=== PATIENT | female | born 1955 | race Caucasian/White ===

== ENCOUNTER 2016-11-26 10:37 | Emergency (ER) | payer MEDICAID, OTHER ==
[2016-11-26 10:42] VITALS: RESP 18; O2SAT 95
--- NOTE | 2016-11-26 11:10 | EDPHY ---
H & P Stated Complaint: Increased right hip pain for 2 weeks. Time Seen by Provider: 11/26/16 10:58 HPI/ROS: HPI: ROS: Source: Patient Exam Limitations: No limitations - Personal History Current Tetanus Diphtheria and Acellular Pertussis (TDAP): Yes - Medical/Surgical History Hx Asthma: No Hx Chronic Respiratory Disease: No Hx Diabetes: No Hx Cardiac Disease: No Hx Renal Disease: No Hx Cirrhosis: No Hx Alcoholism: No Hx HIV/AIDS: No Hx Splenectomy or Spleen Trauma: No Other PMH: back surg/knee surg/dupitrens /shoulder surgery/appy/vein stripping - Family History Significant Family History: No pertinent family hx - Social History Smoking Status: Never smoked Alcohol Use: Rarely Drug Use: None - Physical Exam Exam: 61-year-old female presents to emergency department with chief concern right hip /SI pain that onset 2 weeks ago. Onset the evening after she tripped while planting in the garden, falling on her right hip. Pain is 8/10 at its worst, 4/ 10 now, located in the right SI region with radiation of discomfort into the right posterior thigh to mid thigh. Worse with ambulation and weight-bearing. Has taken Advil with some improvement. Denies fever, chills, other injury at time of incident including head injury or neck injury, weakness, numbness, or tingling of the right leg. No incontinence of bowel or bladder. No saddle anesthesia. Primary care provider Dr. Jasso. Constitutional: Initial Vital Signs Temperature (C) 36.3 C 11/26/16 10:38 Heart Rate 79 11/26/16 10:38 Respiratory Rate 18 11/26/16 10:38 Blood Pressure 118/66 11/26/16 10:38 O2 Sat (%) 95 11/26/16 10:38 O2 Delivery Mode Room Air Allergies/Adverse Reactions: latex [Latex] Allergy (Verified 07/21/15 10:08) HIVES, EYES SWELL Home Medications: Medication Instructions Recorded Hydrocodone/APAP 5/325 [[place] 1 - 2 tab PO HS PRN #10 tab 11/26/16 5/325 (*)] Prozac 10 MG (*) 11/26/16 Valium 11/26/16 Medical Decision Making - Diagnostics Imaging: Right Hip, 2 portable views Technique: AP pelvis and frog-leg right hip. 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 Overall mineralization is normal. No fracture formerly. Thickness of the joint is normal, with no sclerosis and no significant osteophytes. No evidence of avascular necrosis. There is chronic degenerative change of the L3-L4 disk space where there is a levoscoliosis and right-sided disk space narrowing with vacuum phenomenon and marginal osteophyte formation. There are stable left inguinal surgical clips. The SI joints remain normal. There is no soft tissue calcification or ossification. Impression: 1. 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 If symptoms persist recommend 3T MRI for further evaluation. 2. Might the patient symptoms be referred from the lumbar spine? Dictated By: Memo Hoffman MD ED Course/Re-evaluation: 61-year-old female presents to emergency department with right hip pain over the past 2 weeks that onset 24 hours after a traumatic injury when she fell in the garden. No weakness, numbness, or tingling of extremities. No incontinence of bowel or bladder. She has a significant history that includes degenerative joint disease, back surgeries, knee surgeries, shoulder surgeries. Differential Diagnosis: Differential diagnosis includes but is not limited to sacroiliitis, musculoskeletal strain, fracture, dislocation, lumbar radiculopathy, infection Departure - Departure Disposition: Home, Routine, Self-Care Clinical Impression: Sacroiliitis Condition: Good Instructions: Sacroiliitis (ED), Lower Back Exercises (ED) Additional Instructions: Plan: Continue ibuprofen 400-600 mg every 6-8 hours as needed with food, stay well hydrated, may take for 1-2 weeks For severe pain that prevents her from sleeping, may use 1-2 [place] at bedtime-- Never drink or drive while taking this medication. This medication impairs decision making capacity so do not work or sign important documents while taking. This medication its constipating so drink plenty of fluids and consider an [id number] stool softener such as docusate sodium (Colace) while taking this medication. This medication has addictive properties. You should use the least amount for the shortest amount of time. [facility] do not refill narcotic pain medication prescriptions. This is a hospital policy. You will need to follow up as indicated for recheck for further narcotic refills. Follow up with your primary care provider Dr. Jasso for recheck next week-- When you call to schedule appointment, please let the office know you are an " ER follow up" appointment" For progressive weakness of the leg, incontinence of bowel or bladder, severe, unremitting pain that prevents her from walking or sleeping, or other concerning symptoms return promptly for recheck Referrals: Imer Jasso MD [Primary Care Provider] - As per Instructions Prescriptions: Hydrocodone/APAP 5/325 [[place] 5/325 (*)] 1 - 2 tab PO HS PRN #10 tab PRN Reason: Pain, Moderate
[2016-11-26] MEDS ORDERED: HYDROCODONE/APAP 5/325 TAB PO ONE (11:49)
[2016-11-26 11:53] VITALS: BP 122/64; PULSE 82; TEMP 98.6
== END 2016-11-26 11:58 | disposition home or self-care (01) ==
DX: M46.1 Sacroiliitis, not elsewhere classified (principal); Z91.040 Latex allergy status

== ENCOUNTER → 2016-12-16 | Outpatient (CLI) | payer MEDICAID ==
[~2016-12-16] MED LIST: GADOBUTROL 10 ML VIAL IVP ONE
== END ==
LOC: FIMAGING 07:54
PROVIDERS: ATTEND Nurse Practitioner Family
DX: M51.36 Other intervertebral disc degeneration, lumbar region (principal); M48.06 Spinal stenosis, lumbar region; M99.73 Connective tissue and disc stenosis of intervertebral foramina of lumbar region; M51.26 Other intervertebral disc displacement, lumbar region; M51.86 Other intervertebral disc disorders, lumbar region; R22.2 Localized swelling, mass and lump, trunk
CPT/HCPCS: A9585

== ENCOUNTER → 2017-01-13 | Outpatient (CLI) | payer MEDICAID | LOC: FIMAGING 13:40 | PROVIDERS: ATTEND Nurse Practitioner Family | DX: R22.2 Localized swelling, mass and lump, trunk (principal) ==

== ENCOUNTER 2017-01-24 18:40 | Emergency (ER) | payer MEDICAID ==
[2017-01-24 19:01] VITALS: O2SAT 94
[2017-01-24] MEDS ORDERED: HYDROmorphONE/DILAUDID 1 MG/ML SYR IVP ONE ×2 (20:31→22:20)
[2017-01-24] MEDS ORDERED: NS 1,000 ML IV ONE (20:31)
--- NOTE | 2017-01-24 20:34 | EDPHY ---
H & P Stated Complaint: Abdominal pain, Hx diverticulitis Time Seen by Provider: 01/24/17 20:21 HPI/ROS: CHIEF COMPLAINT: Abdominal pain HISTORY OF PRESENT ILLNESS: The patient is a 61-year-old female who comes to the emergency department complaining of left lower quadrant pain that is exactly reminiscent of diverticulitis she had in July of last year. Her symptoms improved on antibiotics. She did not require surgery. She has not had a fever. She has not had any vomiting . She has had mild diarrhea since July but nonbloody. She denies urinary symptoms. She has a history of appendectomy. No upper abdominal pain. No flank pain. REVIEW OF SYSTEMS: Constitutional: denies: chills, fever, recent illness, recent injury EENTM: denies: blurred vision, double vision, nose congestion Respiratory: denies: cough, shortness of breath Cardiac: denies: chest pain, irregular heart rate, lightheadedness, palpitations Gastrointestinal/Abdominal: See HPI Genitourinary: denies: dysuria, frequency, hematuria, pain Musculoskeletal: denies: joint pain, muscle pain Skin: denies: lesions, rash, jaundice, bruising Neurological: denies: headache, numbness, paresthesia, tingling, dizziness, weakness Hematologic/Lymphatic: denies: blood clots, easy bleeding, easy bruising Immunologic/allergic: denies: HIV/AIDS, transplant EXAM: GENERAL: Well-appearing, well-nourished and in no acute distress. HEAD: Atraumatic, normocephalic. EYES: Pupils equal round and reactive to light, extraocular movements intact, sclera anicteric, conjunctiva are normal. ENT: TMs normal, nares patent, oropharynx clear without exudates. Moist mucous membranes. NECK: Normal range of motion, supple without lymphadenopathy or JVD. LUNGS: Breath sounds clear to auscultation bilaterally and equal. No wheezes rales or rhonchi. HEART: Regular rate and rhythm without murmurs, rubs or gallops. ABDOMEN: Left lower quadrant tenderness BACK: No CVA tenderness, no spinal tenderness, step-offs or deformities EXTREMITIES: Normal range of motion, no pitting or edema. No clubbing or cyanosis. NEUROLOGICAL: Cranial nerves II through XII grossly intact. Normal speech, normal gait. 5/5 strength, normal movement in all extremities, normal sensation PSYCH: Normal mood, normal affect. SKIN: Warm, dry, normal turgor, no visible rashes or lesions. Source: Patient Exam Limitations: No limitations - Personal History Current Tetanus/Diphtheria Vaccine: Yes Current Tetanus Diphtheria and Acellular Pertussis (TDAP): Yes - Medical/Surgical History Hx Asthma: No Hx Chronic Respiratory Disease: No Hx Diabetes: No Hx Cardiac Disease: No Hx Renal Disease: No Hx Cirrhosis: No Hx Alcoholism: No Hx HIV/AIDS: No Hx Splenectomy or Spleen Trauma: No Other PMH: back surg/knee surg/dupitrens /shoulder surgery/appy/vein stripping - Family History Significant Family History: No pertinent family hx - Social History Smoking Status: Never smoked Alcohol Use: Sober Drug Use: None Constitutional: Initial Vital Signs Temperature (C) 36.7 C 01/24/17 18:59 Heart Rate 77 01/24/17 18:59 Respiratory Rate 16 01/24/17 18:59 Blood Pressure 143/93 H 01/24/17 18:59 O2 Sat (%) 94 01/24/17 18:59 O2 Delivery Mode Room Air Allergies/Adverse Reactions: latex [Latex] Allergy (Verified 07/21/15 10:08) HIVES, EYES SWELL Home Medications: Medication Instructions Recorded Hydrocodone/APAP 5/325 [[place] 1 - 2 tab PO HS PRN #10 tab 11/26/16 5/325 (*)] Prozac 10 MG (*) 11/26/16 Valium 11/26/16 Amoxicillin/Clavulanate Pot 875 mg PO BID #14 tab 01/24/17 [Augmentin 875Mg] Oxycodone HCl [Dazidox] 10 mg PO TID #14 tablet 01/24/17 Medical Decision Making - Diagnostics Imaging: Discussed imaging studies w/ scallop dredger Radiologist ED Course/Re-evaluation: We discussed the CT results including sacral fractures. I will start her on Augmentin. She states that this worked well for her last time. She is requesting more pain medication. She states that she took oxycodone 10 mg 3 times a day last time this worked well for her. It did not cause constipation. Differential Diagnosis: Partial list of the Differential diagnosis considered include but were not limited to; diverticulitis, back pain, kidney stone, urinary tract infection and although unlikely based on the history and physical exam, I also considered perforation, abscess, volvulus. I discussed these differential diagnoses and the plan with the patient as well as the usual and expected course. The patient understands that the diagnosis is provisional and that in medicine we are not always correct and that further workup is often warranted. Usual and customary warnings were given. All of the patient's questions were answered. The patient was instructed to return to the emergency department should the symptoms at all worsen or return, otherwise to followup with the physician as we discussed. - Data Points Laboratory Results: Laboratory Results 01/24/17 20:35 01/24/17 20:35 Medications Given: Discontinued Medications Amoxicillin/Clavulanate Potassium (Augmentin 875mg) 875 mg PO EDNOW ONE PRN Reason: Protocol Stop: 01/24/17 22:20 Last Admin: 01/24/17 22:50 Dose: 875 mg Hydromorphone HCl (Dilaudid) 1 mg IVP EDNOW ONE Stop: 01/24/17 20:32 Last Admin: 01/24/17 20:50 Dose: 1 mg Hydromorphone HCl (Dilaudid) 1 mg IVP EDNOW ONE Stop: 01/24/17 22:21 Last Admin: 01/24/17 22:35 Dose: 1 mg Sodium Chloride (Ns) 1,000 mls @ 0 mls/hr IV ONCE ONE PRN Reason: Wide Open Stop: 01/24/17 20:32 Last Admin: 01/24/17 20:50 Dose: 1,000 mls Ondansetron HCl (Zofran) 4 mg IVP EDNOW ONE Stop: 01/24/17 20:51 Last Admin: 01/24/17 20:50 Dose: 4 mg Ondansetron HCl (Zofran Odt 4 Mg Prepack#2) 1 btl TAKEHOME EDNOW ONE Stop: 01/24/17 23:29 Last Admin: 01/24/17 23:49 Dose: 1 btl Oxycodone/Acetaminophen (Percocet 5/325mg Prepack#4) 1 btl TAKEHOME EDNOW ONE Stop: 01/24/17 23:29 Last Admin: 01/24/17 23:45 Dose: 1 btl Departure - Departure Disposition: Home, Routine, Self-Care Clinical Impression: Diverticulitis Qualifiers: Diverticulitis site: large intestine Diverticulitis bleeding: without bleeding Diverticulitis complication: with perforation Qualified Code(s): K57.20 - Diverticulitis of large intestine with perforation and abscess without bleeding Condition: Good Instructions: Oxycodone/Acetaminophen (By mouth), Ondansetron (By mouth), Diverticulitis (ED) Referrals: Imer Jasso MD [Primary Care Provider] - As per Instructions Prescriptions: Amoxicillin/Clavulanate Pot [Augmentin 875Mg] 875 mg PO BID #14 tab Oxycodone HCl [Dazidox] 10 mg PO TID #14 tablet
[2017-01-24] MEDS ORDERED: ONDANSETRON 4 MG/2 ML VIAL ONE (20:39)
[2017-01-24 20:46] LABS: % IMMATURE GRANULYOCYTES 0.5 % (0.0-1.1); ABSOLUTE IMMATURE GRANULOCYTES 0.05 10^3/uL (0.00-0.10); ADD DIFF? NO; ADD MORPH? NO; ADD SCAN? NO; ATYPICAL LYMPHOCYTE FLAG 0 (0-99); FRAGMENT RBC FLAG 0 (0-99); HEMATOCRIT 42.7 % (38.0-47.0); HEMOGLOBIN 14.4 g/dL (12.6-16.3); LEFT SHIFT FLG 0 (0-99); LIPEMIA HEMOLYSIS FLAG 80 (0-99); MEAN CELL HEMOGLOBIN CONCENTR. 33.7 g/dL (32.4-36.7); MEAN CELL VOLUME 94.9 fL (81.5-99.8); MEAN PLATELET VOLUME 9.8 fL (8.7-11.7); PLATELET CLUMPS FLAG 0 (0-99); PLATELET COUNT 227 10^3/uL (150-400); RED CELL DISTRIBUTION WIDTH 13.2 % (11.5-15.2)
[2017-01-24] MEDS ORDERED: ONDANSETRON 4 MG/2 ML VIAL IVP ONE (20:50)
[2017-01-24 21:04] LABS: ALANINE AMINOTRANSFERASE 32 IU/L (9-52); ALBUMIN 4.2 g/dL (3.5-5.0); ALKALINE PHOSPHATASE 137 IU/L (38-126); ANION GAP 12 mEq/L (8-16); ASPARTATE AMINOTRANSFERASE 24 IU/L (14-46); BILIRUBIN,TOTAL 0.8 mg/dL (0.1-1.4); BILIRUBIN-CONJUGATED 0.4 mg/dL (0.0-0.5); BILIRUBIN-UNCONJUGATED 0.4 mg/dL (0.0-1.1); CALCIUM 9.7 mg/dL (8.5-10.4); CARBON DIOXIDE 23 mEq/l (22-31); CHLORIDE 105 mEq/L (97-110); CREATININE 0.9 mg/dL (0.6-1.0); GLOMERULAR FILTRATION RATE > 60; GLUCOSE 92 mg/dL (70-100); POTASSIUM 4.3 mEq/L (3.5-5.2); SODIUM 140 mEq/L (134-144)
[2017-01-24] MEDS ORDERED: IOPAMIDOL (ISOVUE-300) 100 ML BTL ONE (21:23)
[2017-01-24 21:36] LABS: COLOR YELLOW; LEUKOCYTE ESTERASE,URINE TRACE (NEGATIVE); NITRITE,URINE NEGATIVE (NEGATIVE)
[2017-01-24 21:39] LABS: BACTERIA TRACE /hpf (NONE SEEN)
[2017-01-24 21:41] LABS: RBC,URINE NONE SEEN /hpf (0-3)
[2017-01-24] MEDS ORDERED: AMOXICILLIN/CLAVULANATE POT 875/125 MG TAB PO ONE (22:19)
[2017-01-24] MEDS ORDERED: OXYCODONE/APAP 5/325MG PREPACK#4 BTL TAKEHOME ONE (23:28)
[2017-01-24] MEDS ORDERED: ONDANSETRON 4MG PREPACK#2 BTL TAKEHOME ONE (23:28)
[2017-01-24] MEDS ORDERED: ONDANSETRON DISINTEGRATING 4 MG TAB ONE (23:37)
[2017-01-24 23:52] VITALS: BP 134/86; PULSE 68; RESP 20; TEMP 97.9
== END 2017-01-24 23:50 | disposition home or self-care (01) ==
DX: K57.20 Diverticulitis of large intestine with perforation and abscess without bleeding (principal); Z91.040 Latex allergy status
CPT/HCPCS: 96374; J1170; J2405; Q9967

== ENCOUNTER → 2017-06-30 | Outpatient (CLI) | payer MEDICAID | LOC: FIMAGING 10:53 | PROVIDERS: ATTEND Family Medicine Sports Medicine | DX: Z13.820 Encounter for screening for osteoporosis (principal); Z78.0 Asymptomatic menopausal state; M85.80 Other specified disorders of bone density and structure, unspecified site ==

== ENCOUNTER → 2017-11-20 | Outpatient (CLI) | payer OTHER | LOC: FIMAGING 14:51 | PROVIDERS: ATTEND Family Medicine Sports Medicine | DX: Z12.31 Encounter for screening mammogram for malignant neoplasm of breast (principal) ==

== ENCOUNTER 2017-12-13 00:19 | Emergency (ER) | payer OTHER ==
[2017-12-13] MEDS ORDERED: NS 1,000 ML IV ONE (00:32)
[2017-12-13] MEDS ORDERED: ONDANSETRON 4 MG/2 ML VIAL IVP ONE (00:32)
[2017-12-13] MEDS ORDERED: HYDROmorphONE/DILAUDID 2 MG/ML INJ IVP ONE ×3 (00:32→02:54)
[2017-12-13 00:46] LABS: PLATELET COUNT 228 10^3/uL (150-400)
--- NOTE | 2017-12-13 01:11 | EDPHY ---
H & P Stated Complaint: abd pain Time Seen by Provider: 12/13/17 00:54 HPI/ROS: HPI The patient presents with abdominal pain which began tonight when she was going to bed. The pain is in her left lower quadrant and left upper quadrant, feels achy in nature, has been constant, and is moderate in severity. It does feel somewhat similar to her previous bouts of diverticulitis, which she experienced in July of 2016 and December of 2016. She has been able to take fluids by mouth, has not had any vomiting, diarrhea, bloody stools, fever. She was feeling well earlier in the day. She does admit to drinking a bottle of wine about 36 hr ago REVIEW OF SYSTEMS Constitutional: No fever, no chills. Eyes: No discharge. ENT: No sore throat. Cardiovascular: No chest pain, no palpitations. Respiratory: No cough, no shortness of breath. Gastrointestinal: Positive for abdominal pain Genitourinary: No hematuria. Musculoskeletal: No back pain. Skin: No rashes. Neurological: No headache. PMHx: History of diverticulitis Soc Hx: Lives at home with her , daughter is a trauma surgeon in [place] PHYSICAL General Appearance: Alert, no distress Eyes: Pupils equal and round no pallor or injection ENT, Mouth: Mucous membranes moist Respiratory: There are no retractions, lungs are clear to auscultation Cardiovascular: Regular rate and rhythm Gastrointestinal: Abdomen is soft with tenderness in the left upper quadrant greater than left lower quadrant without rebound or guarding. Neurological: A&O, moves all extremities Skin: Warm and dry, no rashes Musculoskeletal: Neck is supple non tender Extremities: symmetrical, full range of motion Psychiatric: Patient is oriented X 3, there is no agitation Source: Patient Exam Limitations: No limitations - Personal History Current Tetanus/Diphtheria Vaccine: Unsure Current Tetanus Diphtheria and Acellular Pertussis (TDAP): Unsure - Medical/Surgical History Hx Asthma: No Hx Chronic Respiratory Disease: No Hx Diabetes: No Hx Cardiac Disease: No Hx Renal Disease: No Hx Cirrhosis: No Hx Alcoholism: No Hx HIV/AIDS: No Hx Splenectomy or Spleen Trauma: No Other PMH: diverticulitis, back surg/knee surg/dupitrens /shoulder surgery/appy/ vein stripping - Social History Smoking Status: Never smoked Constitutional: Initial Vital Signs Temperature (C) 36.8 C 12/13/17 00:22 Heart Rate 77 12/13/17 00:22 Respiratory Rate 16 12/13/17 00:22 Blood Pressure 101/66 12/13/17 00:22 O2 Sat (%) 92 12/13/17 00:22 O2 Delivery Mode Room Air O2 (L/minute) 3 Allergies/Adverse Reactions: latex [Latex] Allergy (Verified 07/21/15 10:08) HIVES, EYES SWELL Home Medications: Medication Instructions Recorded Hydrocodone/APAP 5/325 [[place] 1 - 2 tab PO HS PRN #10 tab 11/26/16 5/325 (*)] Prozac 10 MG (*) 11/26/16 Valium 11/26/16 Amoxicillin/Clavulanate Pot 875 mg PO BID #14 tab 01/24/17 [Augmentin 875Mg] Oxycodone HCl [Dazidox] 10 mg PO TID #14 tablet 01/24/17 Medical Decision Making Differential Diagnosis: This is a 62-year-old female with history of diverticulitis who presents from home with several hours of left-sided abdominal pain mostly in her upper abdomen though some left lower quadrant tenderness as well. There is lack of any other symptoms. She says this is not feel like her prior bouts of diverticulitis. Differential diagnosis includes pancreatitis, diverticulitis, less likely splenic injury. In the emergency department, patient received IV fluids and pain medications with improvement in her symptoms. Labs were checked and did reveal very mild leukocytosis as well as elevated lipase. On further history, patient admits to drinking alcohol about 36 hr ago approximately 1 bottle of wine. This is concerning for acute alcoholic pancreatitis. I also considered gallstone pancreatitis and right upper quadrant ultrasound was performed showing no indication a biliary disease. I discussed her diagnosis with her. On reassessment she had continued pain, thus she received another dose of Dilaudid. She eventually felt well enough to go home. She was able to tolerate fluids without any difficulty. I have advised that she stop drinking alcohol and follow up with her primary care doctor. She is to maintain a low residue diet for the next several days. She is in agreement with this plan. - Data Points Laboratory Results: Laboratory Results 12/13/17 00:36 12/13/17 00:36 Medications Given: Discontinued Medications Hydromorphone HCl (Dilaudid) 1 mg IVP EDNOW ONE Stop: 12/13/17 00:33 Last Admin: 12/13/17 00:38 Dose: 1 mg Hydromorphone HCl (Dilaudid) 1 mg IVP EDNOW ONE Stop: 12/13/17 01:08 Last Admin: 12/13/17 01:24 Dose: 1 mg Hydromorphone HCl (Dilaudid) 1 mg IVP EDNOW ONE Stop: 12/13/17 02:55 Last Admin: 12/13/17 03:09 Dose: 1 mg Sodium Chloride (Ns) 1,000 mls @ 0 mls/hr IV ONCE ONE; Wide Open PRN Reason: Protocol Stop: 12/13/17 00:33 Last Admin: 12/13/17 00:38 Dose: 1,000 mls Ondansetron HCl (Zofran) 4 mg IVP EDNOW ONE Stop: 12/13/17 00:33 Last Admin: 12/13/17 00:38 Dose: 4 mg Departure - Departure Disposition: Home, Routine, Self-Care Clinical Impression: Pancreatitis, alcoholic, acute Qualifiers: Acute pancreatitis complication: unspecified Qualified Code(s): K85.20 - Alcohol induced acute pancreatitis without necrosis or infection Condition: Good Instructions: Pancreatitis (ED) Additional Instructions: I recommend you maintain a bland diet until your feeling better. Then you can advance her diet to regular foods. You need to stop drinking alcohol, as this is causing your symptoms. Return to the emergency room if your worse in any way. You should take oxycodone 1-2 tabs every 6 hr until your pain improves. Then you can take Tylenol 650 mg every 6 hr. Referrals: Imer Jasso MD [Primary Care Provider] - As per Instructions
[2017-12-13 04:56] VITALS: BP 132/74
== END 2017-12-13 04:56 | disposition home or self-care (01) ==
DX: K85.20 Alcohol induced acute pancreatitis without necrosis or infection (principal); E86.9 Volume depletion, unspecified; Z91.040 Latex allergy status
CPT/HCPCS: 96374; J1170; J2405

== ENCOUNTER 2017-12-14 16:09 | Inpatient (IN) | payer OTHER ==
--- NOTE | 2017-12-14 16:57 | EDPHY ---
H & P Time Seen by Provider: 12/14/17 16:48 HPI/ROS: Chief complaint. Abdominal pain HPI. 62-year-old female presents emergency department with 2 day history of left lower quadrant abdominal pain. She was seen in our emergency department on 12/13 for what sounds like left lower quadrant abdominal pain however she ended up with a diagnosis of pancreatitis. She has been using soft diet and continues to have left lower quadrant pain. She was seen in the office today and she had a low oxygen saturation. Patient has been taking oxycodone today. It sounds that the visit to the emergency department on 12/13 was complicated by low oxygen saturation after receiving IV Dilaudid. She continues to have left lower quadrant pain that is worse with movement. No nausea vomiting or diarrhea. Her pain reminds her of previous episodes of diverticulitis. She had fever yesterday. No urinary symptoms ROS Constitutional. Fever Eyes. no problems with vision ENT. no sore throat, no nasal drainage Cardiovascular. no chest pain Respiratory. no shortness of breath, no cough Abdominal. Left lower quadrant abdominal pain . no problems urinating MS. no calf pain/swelling, no neck/back pain, no joint pain Skin. no rash Lymph. no swollen glands Neuro. no headache, no dizziness, no difficulty walking or with speech Past Medical/Surgical History: Diverticulitis, orthopedic surgeries, appendectomy, pancreatitis Social History: , nonsmoker, no alcohol Smoking Status: Never smoked Physical Exam: General Appearance: Alert pleasant well-developed female moderate distress vital signs are stable Eyes: Pupils equal and round no pallor or injection. ENT, Mouth: Mucous membranes are moist. Respiratory: There are no retractions, lungs are clear to auscultation. Cardiovascular: Regular rate and rhythm. Gastrointestinal: Abdomen is soft with tender in the left lower quadrant and left mid quadrant. Normal bowel sounds. No masses. Neurological: Awake and alert, sensory and motor exams grossly normal. Skin: Warm and dry, no rashes. Musculoskeletal: Neck is supple nontender. Extremities symmetrical, full range of motion. Psychiatric: Patient is oriented X 3, there is no agitation. Constitutional: Initial Vital Signs Temperature (C) 36.8 C 12/14/17 16:18 Heart Rate 88 12/14/17 16:18 Respiratory Rate 16 12/14/17 16:18 Blood Pressure 123/73 H 04/17/18 16:18 O2 Sat (%) 95 12/14/17 16:18 O2 Delivery Mode Room Air Allergies/Adverse Reactions: latex [Latex] Allergy (Verified 07/21/15 10:08) HIVES, EYES SWELL Home Medications: Medication Instructions Recorded Prozac 10 MG (*) 11/26/16 Valium 11/26/16 Oxycodone HCl [Dazidox] 10 mg PO TID #14 tablet 01/24/17 Medical Decision Making - Diagnostics Imaging Results: Imaging Impressions Chest X-Ray 12/14/17 17:28 Impression: Subsegmental atelectasis versus mild infiltrate at the left lung base. Clinical correlation and follow-up to assure resolution are recommended. One-view chest x-ray shows likely subsegmental atelectasis but the possibility for mild infiltrate at the lung bases. Procedures: IV normal saline. Dilaudid for pain. Zofran for nausea IV Levaquin and Flagyl Another dose of Dilaudid is given for this patient ED Course/Re-evaluation: Patient is not want a CT scan as her daughter is a trauma surgeon in [place] and has cautioned her against CT because of radiation exposure At 7:00 p.m. Patient tells me that she agrees To this CT scan. It is ordered The patient, her , and I have discussed laboratory evaluation and recommendation for CT scan to further confirm diagnosis and look for perforation or abscess. They expressed understanding and agreement. We have discussed recommendation for admission. They expressed understanding and agreement I have consulted and discussed the case with , hospitalist, who agrees to the admission Differential Diagnosis: Clinically the patient has diverticulitis. I AA have considered abscess as well as perforation. I have also considered small-bowel obstruction. - Data Points Laboratory Results: Laboratory Results 12/14/17 16:43 12/14/17 16:43 12/14/17 12/14/17 12/14/17 19:00 17:55 16:43 WBC RBC Hgb Hct MCV MCH MCHC RDW Plt Count MPV Neut % (Auto) Lymph % (Auto) Miller % (Auto) Eos % (Auto) Baso % (Auto) Nucleat RBC Rel Count Absolute Neuts (auto) Absolute Lymphs (auto) Absolute Monos (auto) Absolute Eos (auto) Absolute Basos (auto) Absolute Nucleated RBC Immature Gran % Immature Gran # VBG Lactic Acid 0.7 mmol/L mmol/L (0.7-2.1) Sodium 133 mEq/L L mEq/L (135-145) Potassium 4.2 mEq/L mEq/L (3.5-5.2) Chloride 95 mEq/L L mEq/L (97-110) Carbon Dioxide 28 mEq/l mEq/l (22-31) Anion Gap 10 mEq/L mEq/L (8-16) BUN 7 mg/dL mg/dL (7-23) Creatinine 0.8 mg/dL mg/dL (0.6-1.0) Estimated GFR > 60 Glucose 95 mg/dL mg/dL (70-100) Calcium 9.2 mg/dL mg/dL (8.5-10.4) Lipase 127 IU/L IU/L (23-300) Urine Color YELLOW Urine Appearance CLEAR Urine pH 6.0 (5.0-7.5) Ur Specific [place] 1.005 (1.002-1.030) Urine Protein NEGATIVE (NEGATIVE) Urine Ketones 1+ H (NEGATIVE) Urine Blood 1+ H (NEGATIVE) Urine Nitrate NEGATIVE (NEGATIVE) Urine Bilirubin NEGATIVE (NEGATIVE) Urine Urobilinogen NEGATIVE EU EU (0.2-1.0) Ur Leukocyte Esterase 1+ H (NEGATIVE) Urine RBC 3-5 /hpf H /hpf (0-3) Urine WBC 10-15 /hpf H /hpf (0-3) Ur Epithelial Cells TRACE /lpf /lpf (NONE-1+) Urine Glucose NEGATIVE (NEGATIVE) 12/14/17 16:43 WBC 17.70 10^3/uL H D 10^3/uL (3.80-9.50) RBC 4.03 10^6/uL L 10^6/uL (4.18-5.33) Hgb 12.9 g/dL g/dL (12.6-16.3) Hct 38.9 % % (38.0-47.0) MCV 96.5 fL fL (81.5-99.8) MCH 32.0 pg pg (27.9-34.1) MCHC 33.2 g/dL g/dL (32.4-36.7) RDW 12.9 % % (11.5-15.2) Plt Count 212 10^3/uL 10^3/uL (150-400) MPV 10.7 fL fL (8.7-11.7) Neut % (Auto) 86.1 % H % (39.3-74.2) Lymph % (Auto) 5.0 % L % (15.0-45.0) Miller % (Auto) 7.6 % % (4.5-13.0) Eos % (Auto) 0.1 % L % (0.6-7.6) Baso % (Auto) 0.2 % L % (0.3-1.7) Nucleat RBC Rel Count 0.0 % % (0.0-0.2) Absolute Neuts (auto) 15.23 10^3/uL H 10^3/uL (1.70-6.50) Absolute Lymphs (auto) 0.89 10^3/uL L 10^3/uL (1.00-3.00) Absolute Monos (auto) 1.35 10^3/uL H 10^3/uL (0.30-0.80) Absolute Eos (auto) 0.02 10^3/uL L 10^3/uL (0.03-0.40) Absolute Basos (auto) 0.04 10^3/uL 10^3/uL (0.02-0.10) Absolute Nucleated RBC 0.00 10^3/uL 10^3/uL (0-0.01) Immature Gran % 1.0 % % (0.0-1.1) Immature Gran # 0.17 10^3/uL H 10^3/uL (0.00-0.10) VBG Lactic Acid Sodium Potassium Chloride Carbon Dioxide Anion Gap BUN Creatinine Estimated GFR Glucose Calcium Lipase Urine Color Urine Appearance Urine pH Ur Specific [place] Urine Protein Urine Ketones Urine Blood Urine Nitrate Urine Bilirubin Urine Urobilinogen Ur Leukocyte Esterase Urine RBC Urine WBC Ur Epithelial Cells Urine Glucose Medications Given: Discontinued Medications Hydromorphone HCl (Dilaudid) 0.5 mg IVP EDNOW ONE Stop: 12/14/17 17:28 Last Admin: 12/14/17 18:11 Dose: 0.5 mg Sodium Chloride (Ns) 1,000 mls @ 0 mls/hr IV EDNOW ONE; Wide Open PRN Reason: Protocol Stop: 12/14/17 17:28 Last Admin: 12/14/17 18:11 Dose: 1,000 mls Levofloxacin/Dextrose (Levaquin 750 Mg (Premix)) 150 mls @ 100 mls/hr IV EDNOW ONE PRN Reason: Protocol Stop: 12/14/17 19:10 Last Admin: 12/14/17 18:03 Dose: 150 mls Metronidazole/Sodium Chloride (Flagyl 500 Mg (Premix)) 100 mls @ 100 mls/hr IV EDNOW ONE PRN Reason: Protocol Stop: 12/14/17 18:40 Last Admin: 12/14/17 18:03 Dose: 100 mls Ondansetron HCl (Zofran) 4 mg IVP EDNOW ONE Stop: 12/14/17 17:28 Last Admin: 12/14/17 18:11 Dose: 4 mg Departure - Departure Disposition: [facility] Inpatient Acute Clinical Impression: Diverticulitis Abdominal pain Qualifiers: Abdominal location: left lower quadrant Qualified Code(s): R10.32 - Left lower quadrant pain Condition: Fair Referrals: Imer Jasso MD [Primary Care Provider] - As per Instructions
[2017-12-14] MEDS ORDERED: ONDANSETRON 4 MG/2 ML VIAL IVP ONE (17:27)
[2017-12-14] MEDS ORDERED: NS 1,000 ML IV ONE ×2 (17:27)
[2017-12-14] MEDS ORDERED: HYDROmorphONE/DILAUDID 2 MG/ML INJ IVP ONE ×2 (17:27→19:10)
[2017-12-14 17:36] LABS: PLATELET COUNT 212 10^3/uL (150-400)
[2017-12-14] MEDS ORDERED: IOPAMIDOL (ISOVUE-300) 100 ML BTL ONE (19:14)
[2017-12-14] MEDS ORDERED: HYDROmorphone HCL/NS 0.5 MG/ML SYR IVP ONE (21:15)
[2017-12-14] MEDS ORDERED: PROMETHAZINE HCL 25 MG/ML INJ IVP PRN (22:03)
--- NOTE | 2017-12-14 22:43 | GHP ---
[f rep st] HISTORY AND PHYSICAL DATE OF ADMISSION: 12/14/2017 CHIEF COMPLAINT: Left lower quadrant pain. HISTORY: The patient is a 62-year-old female who has had left lower quadrant pain for the last 2 day s. It came on very severely, radiating upward throughout her abdomen. She has a history of recurren t diverticulitis, 2 previous episodes in the past. The pain is always in the left lower quadrant. T he 2 previous time she has been treated with outpatient oral antibiotics only. Her last normal bowel movement was 2 days ago. Her last colonoscopy was normal in 2016 except for noted diverticulosis. She complains of fever to 99.9 and nausea. PAST MEDICAL HISTORY: 1. Recurrent diverticulitis x2. 2. Squamous cell of the hand, status post recent removal. MEDICATIONS: Please see computer record for full detailed list. ALLERGIES: Latex. SOCIAL HISTORY: No smoking, 2 glasses of wine per day. She lives with her . Her daughter is a trauma surgeon in [place], [place]. REVIEW OF SYSTEMS: Complete review of systems obtained. Review of systems negative on constitutiona l, HEENT, GI, pulmonary, cardiovascular, , hematologic, skin, musculoskeletal, endocrine, and psych iatric except for positives and negative as noted under HPI. FAMILY HISTORY: Reviewed, noncontributory to presenting complaint. PHYSICAL EXAMINATION: GENERAL: Well-developed, well-nourished female, in no acute distress. VITAL SIGNS: Temperature is 36.8, pulse 91, blood pressure 114/74, saturating 95% on room air. EYES: Nor mal conjunctivae. Pupils equal and react to light. ENT: Normal ears and nose. Hearing intact. No rmal teeth. Oropharynx moist. NECK: Trachea midline. No thyromegaly. CHEST: Normal respiratory effort. LUNGS: Clear to auscultation bilaterally. CARDIOVASCULAR: Regular rhythm. No murmur. No extremity edema. ABDOMEN: Soft. Positive left lower quadrant tenderness to palpation without rebo und or guarding. No hepatosplenomegaly. SKIN: Warm, dry, intact. No rash. MUSCULOSKELETAL: No c yanosis or clubbing. Strength 5/5 in upper and lower extremities. NEUROLOGIC: Cranial nerves intac t. Normal sensation to light touch. PSYCHIATRIC: Alert and oriented x3. Normal affect. Normal ju dgment. Normal insight. Normal memory. LABORATORY DATA: White count 17.7, hematocrit 38.9, platelets 212. Sodium 133, potassium 4.2, chlor nelsy 95, bicarb 28, BUN 9, creatinine 0.8, glucose 95. CT scan of the abdomen and pelvis shows a locu lated cystic lesion in the left pelvis, 4 cm, peridiverticular abscess versus tubo-ovarian abscess. This does have similar features back to December 2016. This case was discussed with Dr. Hendrix. CT scan was still pending when she left the emergency room. ASSESSMENT/PLAN: Diverticular abscess. I think this is less likely a tubo-ovarian abscess. Given t he concern, however, of the ovary involvement, I will check a pelvic ultrasound. I think she will li elias need some type of drainage, probably interventional radiology but possibly surgical. We will st art her on intravenous Levaquin and intravenous Flagyl. We will ask Infectious Disease to consult. Will determine the direction of intervention after pelvic ultrasound is obtained. CODE STATUS: Full. ADMISSION STATUS: Will admit to inpatient as she is medically complex. Anticipate greater than 2 mi dnights. DEEP VENOUS THROMBOSIS PROPHYLAXIS: Will hold for anticipated procedure. /[id number]/MODL
[2017-12-14] MEDS: HYDROmorphone HCL/NS 0.5 MG/ML SYR IVP PRN (23:24)
[2017-12-14] MEDS: NS 1,000 ML IV SCH (23:41)
[2017-12-14] MEDS: oxyCODONE IR 5 MG TAB PO PRN (23:42)
[2017-12-14] MEDS: ONDANSETRON 4 MG/2 ML VIAL IVP PRN (23:42)
[2017-12-15] MEDS: HYDROmorphone HCL/NS 0.5 MG/ML SYR IVP PRN ×3 (05:04→12:44)
[2017-12-15] MEDS: ONDANSETRON 4 MG/2 ML VIAL IVP PRN ×2 (05:04→10:30)
[2017-12-15 05:25] LABS: PLATELET COUNT 215 10^3/uL (150-400)
[2017-12-15] MEDS: FLUoxetine 10 MG CAP PO SCH (09:31)
--- NOTE | 2017-12-15 10:35 | PDMN ---
Medical Necessity Medical necessity: M150 diverticulitis, acute A-2: abd pain with CT showing loculated cystic lesion in L pelvis, peridiverticular abscess vs. tubo- ovarioan abscess. Poss I/D, needed. ID consult pend., pt is NPO- anticipate > 2 midnights ongoing med nec care, monitoring eval and tx needed
[2017-12-15] MEDS: cefTRIAXone 2 GM in STERILE WATER INJ 20 ML IV SCH (12:01)
[2017-12-15] MEDS: oxyCODONE IR 5 MG TAB PO PRN (12:08)
--- NOTE | 2017-12-15 12:30 | GCON ---
[f rep st] CONSULTATION INFECTIOUS DISEASES CONSULTATION DATE OF CONSULTATION: 12/15/2017 REQUESTING PHYSICIAN: Tabby Awad MD. REASON FOR CONSULTATION: Possible diverticular abscess. HISTORY OF PRESENT ILLNESS: Patient is a 62-year-old female with a past medical history of diverticu litis x2, both episodes managed as an outpatient with oral antibiotic therapy, who I am asked to see in consultation for a left lower quadrant abscess. The patient describes developing recurrent abdomi nal pain, primarily localized to the left lower quadrant, beginning over the preceding weekend. She was seen in the emergency department on 12/13/2017, at which point in time findings were felt to be m ost compatible with pancreatitis. Lipase was elevated to 411 at that point in time. Abdominal ultra sound was performed during her emergency department visit, which showed normal appearance of the gall bladder and pancreas. The patient had persistent abdominal pain, which was worsening, and was admitt ed based on these findings yesterday. Abdominal CT scan was performed, which shows a complex fluid c ollection in the left pelvis in a similar location to a peridiverticular abscess seen last year, whic h measures 3.9 x 3.9 x 4.5 cm. Tubo-ovarian abscess was also considered. This was followed up with a pelvic ultrasound with findings of a normal-appearing left ovary. Additional data showed a white c ount of 17,000. The patient describes having fever with shaking chills. She has had nausea but no v omiting or diarrhea. She does not have any painful urination, vaginal discharge, or passage of fecal material or air vaginally. The patient has been started empirically on levofloxacin and metronidazo le. Patient was treated 3 weeks ago with Augmentin due to some mild left lower quadrant pain, which resolved. Given the above findings, I am now asked to assist in her ongoing management. PAST MEDICAL HISTORY: Diverticulitis x2 episodes, both managed with oral antibiotics; CT scan of the abdomen and pelvis that was performed in December of 2016 showed sigmoid diverticulitis with micro perfor ation. Dysthymia, squamous cell carcinoma of the hand, status post surgical removal. DVT associated with . PAST SURGICAL HISTORY: Dupuytren contracture, multiple orthopedic surgeries. CURRENT MEDICATIONS: Levofloxacin 750 mg IV q.24 hours, metronidazole 500 mg IV q.8 hours, Dilaudid as needed for pain, Valium as needed for anxiety, Prozac 10 mg p.o. daily. ALLERGIES: No known drug allergies. SOCIAL HISTORY: Patient does not smoke. She describes social alcohol intake. No drug use history. 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 Pet dogs at home. No recent travel. FAMILY HISTORY: Noncontributory. REVIEW OF SYSTEMS: Outside that noted in the HPI, the remainder of 10 system review is unremarkable. PHYSICAL EXAMINATION: VITAL SIGNS: Temperature 37.3, heart rate 88, respiratory rate 14, blood pres sure 114/71, oxygen saturation 93% on room air. GENERAL: Patient is well nourished, well developed, in mild distress secondary to left lower quadrant pain. She appears nontoxic. HEENT: There is no scleral icterus, conjunctival injection, or conjunctival petechiae. Oropharynx shows slightly dry mu cous membranes. Dentition is in good repair. There is no nasal discharge. There is no tenderness o michael the frontal, maxillary or mastoid area. NECK: Supple without palpable lymphadenopathy or thyrom egaly. CHEST: Clear to auscultation bilaterally without adventitious sounds. Respiratory effort is normal. CARDIOVASCULAR: Regular rate and rhythm and rhythm without murmurs, gallops, or rubs. ABD OMEN: Soft, tender in the left mid and left lower quadrants. Bowel sounds are present. There is no palpable organomegaly. Voluntary guarding is present. MUSCULOSKELETAL: There is no cyanosis, club anyi, or edema. The right hand shows Steri-Strips present with no erythema adjacent to incision. SK IN: No rash is noted. No stigmata of endocarditis. The skin is warm and dry to touch. NEUROLOGIC: Patient is alert and interacts appropriately with the examiner. Cranial nerves 2-12 are grossly in tact. Muscle tone and bulk are normal. LABORATORY DATA: White blood cell count 17.3, hematocrit 36.0, platelets 215, neutrophils 87%. Seru m creatinine is 0.6, bicarbonate 25. Blood cultures x2 sets are pending. Imaging as outlined above, which was reviewed and interpreted by me with Radiology today. IMPRESSION: Probable peridiverticular abscess: Clinical findings most compatible with peridiverticu lar abscess given prior history of diverticulitis. No overt diverticulitis noted on CT scan, althoug h did receive Augmentin recently. Other considerations would be ovarian etiology, although ultrasoun d suggests ovary appearance is normal. Most likely, this will be associated with enteric nadege. Rev iew with Radiology regarding feasibility of percutaneous drainage, which is not felt to be possible b ased on appearance with concern for phlegmonous quality. We will obtain general surgery consultation for further input regarding open drainage versus continued observation with antibiotic therapy to de termine if collection matures allowing for percutaneous drainage versus resolves with medical managem ent. Ultimately, at some point, she will require sigmoid resection to prevent further recurrent epis odes when she is at a period of time where there is not active inflammation present. RECOMMENDATIONS: 1. Ceftriaxone 2 g IV daily (favor over levofloxacin based on higher susceptibility amongst E coli). 2. Continue metronidazole. 3. Discontinue levofloxacin. 4. General surgical consultation. 5. Follow up blood cultures and clinical course over time. 6. Thank you for this consultation. We will continue to follow the patient with you. /[id number]/MODL
--- NOTE | 2017-12-15 13:10 | HOSPPROG ---
Hospitalist Progress Note Assessment/Plan: Intra-abdominal abscess - Becky-diverticular vs TOA. U/S less suspicious for ovarian etiology, though gen surg concerned this may represent TOA. Discussed with ID and surg. WBC's remain elevated at 17K. BCx's pending. Poor pain control -surgery consulted for consideration of operative drainage vs atbx management and follow -POWER BUILDER DEVELOPER also consulted for their opinion, Dr. 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 No fevers. No N/V. Remains NPO. Objective: Vital Signs Temp Pulse Resp BP Pulse Ox 37.9 C 88 12 143/76 H 91 L 12/15/17 12:04 12/15/17 12:04 12/15/17 12:04 12/15/17 12:04 12/15/17 12:04 Laboratory Results 12/15/17 05:04 12/15/17 05:04 12/14/17 12/15/17 12/16/17 05:59 05:59 05:59 Intake Total 1200 Output Total 1000 Balance 200 - Physical Exam Constitutional: no apparent distress Eyes: PERRL Ears, Nose, Mouth, Throat: moist mucous membranes Cardiovascular: regular rate and rhythym Respiratory: no respiratory distress, clear to auscultation Gastrointestinal: normoactive bowel sounds, other (soft, +LLQ TTP, no r/r/g, +BS ) Skin: warm Musculoskeletal: full muscle strength Neurologic: AAOx3 Psychiatric: interacting appropriately ICD10 Worksheet Patient Problems: Problems Problem Status Onset Abdominal pain Acute Diverticulitis Acute Diverticulitis Acute
[2017-12-15] MEDS ORDERED: NALOXONE HCL 0.4 MG/ML INJ IVP PRN (13:25)
[2017-12-15] MEDS: HYDROmorphONE/DILAUDID 6 MG/30 ML PCA IV PRN (14:35)
--- NOTE | 2017-12-15 16:16 | ASMTCMCOM ---
CM Note CM Note Notes: Spoke w/RN, anticipate pt will dc home w/support of when medically stable. CM available for any changes. DC Plan: Independent Date Signed: 12/15/2017 04:15 PM Electronically Signed By:Sharon Mei RN
--- NOTE | 2017-12-15 16:47 | GCON ---
[f rep st] CONSULTATION HUMAN RESOURCES COMPENSATION ANALYST CONSULTATION DATE OF CONSULTATION: 12/15/2017 REFERRING PHYSICIAN: Mona Almazan MD REASON FOR CONSULTATION: Left lower quadrant abscess, possible tubo-ovarian abscess. HISTORY OF PRESENT ILLNESS: Patient is a 62-year-old 2, para 2, postmenopausal female, with a history of diverticulitis x2, who I am asked to see in consultation for left lower quadrant abscess, questionable tubo-ovarian abscess. The patient describes the pain primary localized to left lower quadrant. Pain is sharp and stabbing, with an onset about 3 days ago. The pain worsened and the patient presented to the Emergency Department 12/13/2017. The patient continued to have persistent left lower quadrant pain, associated with fevers, chills, and nausea. Denies any vomiting or diarrhea. She was then admitted 12/14/17 based on these findings. Patient denies any urinary complaints or bowel complaints. She denies any abnormal vaginal discharge, or any postmenopausal bleeding. Patient states she has not been sexually active for the last 10 years. Patient states she was treated 3 weeks ago with Augmentin and developed a yeast infection but has no symptoms at this time. PAST OB HISTORY: Remarkable for 2 uncomplicated vaginal deliveries; however, she did develop DVT with her second . GYNECOLOGIC HISTORY: Age of menarche 12. Cycles were regular. Patient has been menopausal since the age of 50. Denies any postmenopausal bleeding. Was on hormone replacement therapy for a short amount of time. Patient denies any history of abnormal Pap smears or any exposure to any sexually transmitted diseases. Pap smears and mammograms are normal and up to date. PAST MEDICAL HISTORY: Diverticulitis x 2, dysthymia, squamous cell carcinoma of the hand, DVT associated with . PAST SURGICAL HISTORY: Dupuytren contracture and multiple orthopedic surgeries. ALLERGIES: No known drug allergies. CURRENT MEDICATIONS: Include levofloxacin, metronidazole, Dilaudid as needed, Valium as needed, and Prozac. SOCIAL HISTORY: Patient is . She lives at home with her . She denies any tobacco or illicit drug use. She does admit to social alcohol intake. 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 FAMILY HISTORY: Noncontributory. REVIEW OF SYSTEMS: Ten-point review of systems is negative. Pertinent positives noted in HPI. PHYSICAL EXAMINATION: VITAL SIGNS: Stable. Patient is a afebrile. GENERAL: Well-nourished, well-developed female, no apparent distress. Alert and oriented x3. HEART: Regular rate and rhythm. LUNGS: Clear to auscultation bilaterally. ABDOMEN: Soft, nondistended. Mild tenderness in the left lower quadrant. No rebound or guarding noted. PELVIC EXAM: Deferred at this time. EXTREMITIES: Normal to inspection without calf tenderness or edema. LABORATORY DATA: White blood cell count 17.2, hematocrit 36, platelets 215. Blood cultures x2 are pending. IMAGING: Abdominal CT scan was performed, showing a complex fluid collection in left pelvis, similar location to a peridiverticular abscess seen last year, measuring 3 x 4 cm. Pelvic ultrasound was also done with findings of normal- appearing left ovary. IMPRESSION: A 62-year-old, G2, P2, postmenopausal female with left lower quadrant abscess and history of diverticulitis x 2 PLAN: 1. I reviewed the pelvic ultrasound, and it appears the left ovary is normal with the abscess just adjacent to it. 2. Patient is at low risk for pelvic inflammatory disease, tubo-ovarian abscess since she is not sexually active and has not been for the last 10 years and does not have any exposure to sexually transmitted diseases. 2. Doubt tubo-ovarian abscess at this time; most compatible with peridiverticular abscess, given prior history of diverticulitis. 3. If patient is requiring surgery and there is ovarian pathology seen, would be available for intraoperative consult. Thank you for this consultation. /[id number]/MODL MTDD
--- NOTE | 2017-12-15 19:23 | GCON ---
[f rep st] CONSULTATION CONSULTATION REQUESTED BY: Dr. Ion Hernandez and Dr. Tabby Awad. REASON FOR CONSULTATION: Intra-abdominal inflammatory process. HISTORY: Leah Montero is a 62-year-old white female who was doing well until Wednesday afternoon (today is Wednesday). She developed a "strong pain" that was sharp and constant, which was similar to her prior episodes of diverticulitis. The pain was located in the left lower quadrant. She came to the ER on Wednesday and the diagnosis of possible pancreatitis was made. She was sent home without antibiotics and did take oxycodone for pain. The pain became worse over the next 24 hours and at 3:00 p.m. yesterday she went to [facility] for further evaluation. She was sent to the ER and was admitted to the hospital. Yesterday, she had nausea but no vomiting. She has not moved her bowels, and she is not currently hungry. In June of 2016, she had a colonoscopy and was found to have diverticulosis. In July of 2016, she had her 1st episode of "diverticulitis." She was treated with Augmentin for 5 days and it resolved. She had eaten only broth at that timeframe. On in 2016, she had a recurrence. Again, she had a 5-day episode and was again treated with Augmentin. Note is made, she had an appendectomy in 1985 while she was . She recently had a CT scan which shows a left lower quadrant complex mass. There are diverticula, but no evidence of diverticulitis. The mass is anterior but adjacent to the left ovary. Ultrasound does show the mass adjacent to the left ovary and an endometrial fluid stripe. She has not had any vaginal discharge. She has had no pain with bowel movements. SOCIAL HISTORY: She is a nonsmoker. She drinks 2 glasses of wine 4-7 days a week. ALLERGIES: No known drug allergies. MEDICATIONS: She takes Prozac 10 mg and has done so for 20 years. She takes diazepam 5 mg for low back pain. PAST SURGICAL HISTORY: Included arthroscopy in both knees for meniscectomy. She has had a left shoulder labrum tear and biceps tendon tear, which have been repaired. She has had a left shoulder dislocation and left humeral fracture. This was treated non-operatively. She has had L5-S1 laminectomy. She has had Dupuytren contracture release bilaterally. She had her 1st episode of diverticulitis after the Dupuytren surgery, and she attributed it to constipation due to pain medications for her contractures. PAST MEDICAL HISTORY: There is no history of rheumatic fever, tuberculosis, hepatitis, or transfusions. REVIEW OF SYSTEMS: She wears lenses for visual correction. She has several dental caps and crowns. She has had a murmur since childhood. There are no limits on her activities. No history of steroid use. Note is made, she had a left lower leg DVT, which was not treated, in 1985. She has taken Lovenox with every surgery since that time. PHYSICAL EXAMINATION: GENERAL: She is awake, alert, and pleasant. She says her pain is much better now than it was earlier today. Note is made, she was on Levaquin and Flagyl since admission but was changed today to ceftriaxone. The Flagyl was continued. She does not appear toxic at this point. ABDOMEN: Tender with cough in the left lower quadrant. She has hypoactive but normal bowel sounds. To palpation, she is tender as follows: Right upper quadrant 1, right midabdomen 1, right lower quadrant 1, epigastrium 1, periumbilical area 1 , suprapubic area 2, left upper quadrant 1, left midabdomen 2, left lower quadrant 3-4. She does not have an acute abdomen at this time. LAB FINDINGS: Her white count was 17.7 on admission and 17.3 today, with 86% neutrophils identified in both cases. Hematocrit dropped from 38-36 with hydration. Her chest x-ray shows atelectasis versus an infiltrate in the left lower lobe. Note is made, her lactate is 0.7. IMPRESSION: Certainly, her history is very similar to her prior episodes of diverticulitis, yet on yesterday's CAT scan examination, although there were a few diverticula present, there certainly was not any signs of colonic inflammation. To my examination, this appears to be a complex mass in continuity with the left ovary, and I favor more a tubal-ovarian abscess/ ovarian process. Nonetheless, she does not appear toxic at this point. There is nothing to be percutaneously drained given the complex nature of the collection. PLAN: I suggest we continue antibiotic therapy. If she resolves without intervention, that would be fabulous. If she remains stable, hopefully we can decrease her infectious risk with several days of antibiotics before exploration. Certainly, if she is worse, then exploration would be indicated. I have spoken to the patient's daughter, who is a trauma surgeon in [place], [place], and she understands my thoughts, concerns, and plan. She agrees to proceed as we have outlined. /[id number]/MODL MTDD
[2017-12-15] MEDS: DOCUSATE SODIUM 100 MG CAP PO SCH (21:21)
[2017-12-16] MEDS: NS 1,000 ML IV SCH (02:15)
[2017-12-16 08:42] LABS: PLATELET COUNT 233 10^3/uL (150-400)
--- NOTE | 2017-12-16 09:43 | SOAPPROG ---
[facility] Progress Note Assessment/Plan: 12/16/17 09:39 Assessment: Improved since yesterday. temp down. pain slightly less. Although she has not passed flatus she is beginning to get hungry Plan: Continue IV antibiotic therapy. Consider a follow up CT in two days to see if the collection has become more amenable to percutaneous drainage. Do not anticipate urgent need for surgical intervention Subjective: " I'm going stir crazy!! I can't stay here 5 more days for IV antibiotics" Objective: Vital Signs Temp Pulse Resp BP Pulse Ox 37.0 C 77 16 120/58 L 87 L 12/16/17 07:34 12/16/17 07:34 12/16/17 07:34 12/16/17 07:34 12/16/17 07:34 Laboratory Results 12/16/17 08:32 12/15/17 05:04 12/15/17 12/16/17 12/17/17 05:59 05:59 05:59 Intake Total 1200 2400 2454 Output Total 1000 500 Balance 200 1900 2454 - Time Spent With Patient Time Spent With Patient: 25 - Pending Discharge Pending Discharge Within 24 Hours: No Pending Discharge Within 48 Hours: No Physical Exam - Physical Exam General Appearance: alert, mild distress Abdomen: guarding, other (Hypoactive bowel sounds. Sligghtly less tender than yesterday) ICD10 Worksheet Patient Problems: Problems Problem Status Onset Abdominal pain Acute Diverticulitis Acute Diverticulitis Acute
[2017-12-16] MEDS: FLUoxetine 10 MG CAP PO SCH (09:51)
[2017-12-16] MEDS: cefTRIAXone 2 GM in STERILE WATER INJ 20 ML IV SCH (09:51)
[2017-12-16] MEDS: DOCUSATE SODIUM 100 MG CAP PO SCH ×2 (09:51→21:37)
--- NOTE | 2017-12-16 12:32 | PCMIDPN ---
Assessment/Plan: Assessment: Pelvic inflammation status post diverticulitis. By latest imaging is not a drainable collection but instead a phlegmon. Currently covering with ceftriaxone and metronidazole. Patient is symptomatically improving in her white count is reducing. There continues to be some debate as to whether this is gastrointestinal in origin or ovarian. At this point this distinction is not crucial to therapeutic choices. Will continue the current regimen and follow clinically. Plan: 1. Continue IV ceftriaxone and metronidazole. 2. Continue to observe in p. O.. 3. Likely reimage in 2-3 days. 12/16/17 12:28 12/16/17 12:32 Subjective: Patient is resting in her hospital bed. She states she feels somewhat improved from admission. Fevers or chills. Continues to have a heavy feeling in her abdomen. Objective: Ceftriaxone # 3 Metronidazole # 2 Vital Signs Temp Pulse Resp BP Pulse Ox 37.2 C 80 16 118/60 87 L 12/16/17 11:44 12/16/17 11:44 12/16/17 11:44 12/16/17 11:44 12/16/17 11:44 Laboratory Results 12/16/17 08:32 12/15/17 05:04 12/15/17 12/16/17 12/17/17 05:59 05:59 05:59 Intake Total 1200 2400 2454 Output Total 1000 500 Balance 200 1900 2454 - Physical Exam General Appearance: WD/WN, alert, no apparent distress, non-toxic Respiratory: lungs clear, normal breath sounds, No respiratory distress Cardiac/Chest: regular rate, rhythm, No tachycardia Abdomen: soft, distended, No non-tender, No mass Skin: normal color, warm/dry, No rash Neuro/Psych: alert, normal mood/affect, oriented x 3 ICD10 Worksheet Patient Problems: Problems Problem Status Onset Abdominal pain Acute Diverticulitis Acute Diverticulitis Acute
[2017-12-16] MEDS: HYDROmorphONE/DILAUDID 6 MG/30 ML PCA IV PRN (13:10)
--- NOTE | 2017-12-16 14:59 | HOSPPROG ---
Hospitalist Progress Note Assessment/Plan: Intra-abdominal abscess - Becky-diverticular vs TOA. 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 Based on h/o diverticulitis, seems more likely to be diverticular in origin, though odd that there is not associated diverticulitis on CT. WBC's trending down. Clinically stable to a bit improved. BCx's NGTD. -discussed with Dr. Hernandez, recommends continued conservative management with IV atbx, to OR if clinically deteriorates -likely repeat CT in 1-2 days -cont ceftriaxone / flagyl, ID following -pain controlled on [employer] -cont trend wbc's -follow Cx data Full code DVT PPLX - Lovenox if not going to OR, o/w SCD's Dispo - cont inpt Subjective: Pt feels better. Pain better controlled, though she may be a bit confused from dilaudid. No fevers/chills. No N/V. Remains NPO. Objective: Vital Signs Temp Pulse Resp BP Pulse Ox 36.7 C 75 16 124/70 H 97 12/16/17 14:00 12/16/17 14:00 12/16/17 14:00 12/16/17 14:00 12/16/17 14:00 Laboratory Results 12/16/17 08:32 12/15/17 05:04 12/15/17 12/16/17 12/17/17 05:59 05:59 05:59 Intake Total 1200 2400 2454 Output Total 1000 500 Balance 200 1900 2454 - Physical Exam Constitutional: no apparent distress Eyes: PERRL Ears, Nose, Mouth, Throat: moist mucous membranes Cardiovascular: regular rate and rhythym Respiratory: no respiratory distress, clear to auscultation Gastrointestinal: normoactive bowel sounds, other (soft, nd, mild LLQ ttp, no r/ r/g) Skin: warm Musculoskeletal: full muscle strength Neurologic: AAOx3 Psychiatric: interacting appropriately ICD10 Worksheet Patient Problems: Problems Problem Status Onset Abdominal pain Acute Diverticulitis Acute Diverticulitis Acute
[2017-12-16] MEDS: ACETAMINOPHEN 325 MG TAB PO PRN (23:59)
[2017-12-17 05:05] LABS: PLATELET COUNT 297 10^3/uL (150-400)
[2017-12-17] MEDS: cefTRIAXone 2 GM in STERILE WATER INJ 20 ML IV SCH (09:53)
[2017-12-17] MEDS: DOCUSATE SODIUM 100 MG CAP PO SCH ×2 (09:53→21:41)
[2017-12-17] MEDS: FLUoxetine 10 MG CAP PO SCH (09:53)
--- NOTE | 2017-12-17 09:58 | PCMIDPN ---
Assessment/Plan: Assessment/Plan: * Pelvic phlegmon: Clinically improved with antibiotic therapy with decreasing white blood cell count and left lower quadrant pain. Continue ceftriaxone and metronidazole. Plan repeat CT scan likely on Wednesday to assess if phlegmon has become more mature where percutaneous drainage could be undertaken or if resolving with antibiotic therapy. Clinical findings and plan were discussed with patient, Dr. Almazan, and Dr. Hernandez. 12/17/17 09:56 Subjective: Patient feels improved with less abdominal pain although still on ECHOCARDIOLOGIST. Objective: Vital Signs Temp Pulse Resp BP Pulse Ox 36.8 C 73 16 135/70 H 88 L 12/17/17 07:21 12/17/17 09:44 12/17/17 09:44 12/17/17 09:44 12/17/17 09:44 Laboratory Results 12/17/17 04:40 12/17/17 04:40 12/16/17 12/17/17 12/18/17 05:59 05:59 05:59 Intake Total 2400 5098 Output Total 500 Balance 1900 5098 Ceftriaxone # 4 Metronidazole # 3 Blood cultures x2 no growth - Physical Exam General Appearance: alert, no apparent distress EENT: No scleral icterus, No thrush Respiratory: lungs clear, No respiratory distress Cardiac/Chest: regular rate, rhythm Abdomen: tender (Mild in left lower quadrant), No distended Skin: No rash ICD10 Worksheet Patient Problems: Problems Problem Status Onset Abdominal pain Acute Diverticulitis Acute Diverticulitis Acute
[2017-12-17] MEDS: ENOXAPARIN 40 MG/0.4 ML SYR SC SCH (11:41)
[2017-12-17] MEDS: D5W NS W/ 20 KCl/L 1,000 ML IV SCH (11:45)
--- NOTE | 2017-12-17 12:53 | HOSPPROG ---
Hospitalist Progress Note Assessment/Plan: Intra-abdominal abscess - Becky-diverticular vs TOA. 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 Based on h/o diverticulitis, seems more likely to be diverticular in origin, though odd that there is not associated diverticulitis on CT. WBC's trending down. Clinically improving. BCx's NGTD. -discussed with Dr. Kumar, recommends continued conservative management with IV atbx, to OR if clinically deteriorates -consider repeat CT in 1-2 days -cont ceftriaxone / flagyl, ID following -pain controlled on [employer], consider changing to orals when reliably tolerating po -trial clears today -cont to trend wbc's -follow Cx data Full code DVT PPLX - Lovenox Dispo - cont inpt Subjective: Pt doing better. Pain controlled. No N/V. Low grade temp overnight. Remains NPO. No CP or SOB. Objective: Vital Signs Temp Pulse Resp BP Pulse Ox 36.9 C 75 16 141/91 H 90 L 12/17/17 11:58 12/17/17 11:58 12/17/17 11:58 12/17/17 11:58 12/17/17 11:58 Laboratory Results 12/17/17 04:40 12/17/17 04:40 12/16/17 12/17/17 12/18/17 05:59 05:59 05:59 Intake Total 2400 5098 Output Total 500 Balance 1900 5098 - Physical Exam Constitutional: no apparent distress Eyes: PERRL Ears, Nose, Mouth, Throat: moist mucous membranes Cardiovascular: regular rate and rhythym, no murmur, rub, or gallop Respiratory: no respiratory distress, clear to auscultation Gastrointestinal: normoactive bowel sounds, soft, non-tender abdomen Skin: warm Musculoskeletal: full muscle strength Neurologic: AAOx3 Psychiatric: interacting appropriately ICD10 Worksheet Patient Problems: Problems Problem Status Onset Abdominal pain Acute Diverticulitis Acute Diverticulitis Acute
[2017-12-17] MEDS: HYDROmorphONE/DILAUDID 6 MG/30 ML PCA IV PRN (14:10)
--- NOTE | 2017-12-17 14:15 | SOAPPROG ---
SOAP Progress Note Assessment/Plan: Assessment: felicia-colonic abscess, likely due to diverticulitis I reviewed her CT images and clinical course and agree with management thus far. Consider repeat imaging prior to discontinuing antibiotics or sooner if respikes fever or has rising leukocytosis The abscess, though not mature on the initial CT, should be easily accessible by percutaneous anterior approach Plan: Continue Abx/clear liquid diet continue observation 12/17/17 14:26 12/17/17 14:28 Subjective: feeling a little better than yesterday passing some flatus/no BM Objective: Vital Signs Temp Pulse Resp BP Pulse Ox 36.9 C 75 16 148/77 H 94 12/17/17 13:51 12/17/17 13:51 12/17/17 13:51 12/17/17 13:51 12/17/17 13:51 Laboratory Results 12/17/17 04:40 12/17/17 04:40 12/16/17 12/17/17 12/18/17 05:59 05:59 05:59 Intake Total 2400 5098 Output Total 500 Balance 1900 5098 - Pending Discharge Pending Discharge Within 24 Hours: No Physical Exam - Physical Exam General Appearance: mild distress Cardiac/Chest: regular rate, rhythm Abdomen: normal bowel sounds, soft, distended, other (tender LLQ with mild guarding/no mass) Pelvic Exam: deferred Rectal: deferred Skin: normal color, warm/dry Neuro/Psych: normal mood/affect, oriented x 3 ICD10 Worksheet Patient Problems: Problems Problem Status Onset Abdominal pain Acute Diverticulitis Acute Pericolonic abscess Acute Diverticulitis Acute - ICD10 Problem Qualifiers (1) Pericolonic abscess
--- NOTE | 2017-12-17 14:34 | ASMTCMCOM ---
CM Note CM Note Notes: Spoke w/RN, plan remains the same, anticipate pt will dc home w/support of family when medically stable. CM available for any changes. DC Plan: Independent Date Signed: 12/17/2017 02:33 PM Electronically Signed By:Sharon Mei RN
[2017-12-18 05:24] LABS: PLATELET COUNT 273 10^3/uL (150-400)
[2017-12-18] MEDS: D5W NS W/ 20 KCl/L 1,000 ML IV SCH (05:52)
--- NOTE | 2017-12-18 08:33 | SOAPPROG ---
SOAP Progress Note Assessment/Plan: 12/16/17 09:39 Assessment: Improved since yesterday. temp down. pain slightly less. Although she has not passed flatus she is beginning to get hungry Plan: Continue IV antibiotic therapy. Consider a follow up CT in two days to see if the collection has become more amenable to percutaneous drainage. Do not anticipate urgent need for surgical intervention 12/18/17 08:30 Assessment: Improved! WBC decreased to 10K, afebrile, pain remarkably less - responding to antibiotics Plan: F/u CT of abdomen and pelvis tomorrow to aid in diagnosis and planning Subjective: "I'm better" Objective: Vital Signs Temp Pulse Resp BP Pulse Ox 36.5 C 69 18 145/93 H 95 12/18/17 07:49 12/18/17 07:49 12/18/17 07:49 12/18/17 07:49 12/18/17 07:49 Laboratory Results 12/18/17 05:10 12/17/17 04:40 12/17/17 12/18/17 12/19/17 05:59 05:59 05:59 Intake Total 5098 Balance 5098 - Time Spent With Patient Time Spent With Patient: 15 - Pending Discharge Pending Discharge Within 24 Hours: No Pending Discharge Within 48 Hours: No Physical Exam - Physical Exam General Appearance: WD/WN, alert, mild distress Abdomen: normal bowel sounds, soft, other (left lower quardrant much less tender ) ICD10 Worksheet Patient Problems: Problems Problem Status Onset Abdominal pain Acute Diverticulitis Acute Pericolonic abscess Acute Diverticulitis Acute
[2017-12-18] MEDS: FLUoxetine 10 MG CAP PO SCH (09:05)
[2017-12-18] MEDS: DOCUSATE SODIUM 100 MG CAP PO SCH ×2 (09:05→19:31)
[2017-12-18] MEDS: ENOXAPARIN 40 MG/0.4 ML SYR SC SCH (09:05)
[2017-12-18] MEDS: cefTRIAXone 2 GM in STERILE WATER INJ 20 ML IV SCH (09:05)
[2017-12-18] MEDS: oxyCODONE IR 5 MG TAB PO PRN ×6 (09:05→23:10)
--- NOTE | 2017-12-18 11:14 | PCMIDPN ---
Assessment/Plan: Assessment/Plan: * Pelvic phlegmon: Continued clinical improvement with decreasing abdominal pain and leukocytosis. Continue ceftriaxone and metronidazole. Plan repeat CT scan of abdomen and pelvis tomorrow to reassess pelvic collection to determine if has become more organized where would be amenable to percutaneous drainage. Clinical findings and plan discussed with patient, and Dr. Hernandez. Time spent, 25 min, of which greater than half was spent in education/counseling /coordination of care related to pelvic phlegmon. 12/18/17 11:12 Subjective: Patient notes decreasing abdominal pain. Continuing to require narcotics for pain control. Tolerating clear liquids. Objective: Vital Signs Temp Pulse Resp BP Pulse Ox 36.9 C 76 18 131/97 H 91 L 12/18/17 10:00 12/18/17 10:00 12/18/17 10:00 12/18/17 10:00 12/18/17 10:00 Laboratory Results 12/18/17 05:10 12/17/17 04:40 12/17/17 12/18/17 12/19/17 05:59 05:59 05:59 Intake Total 5098 Balance 5098 Ceftriaxone # 5 Metronidazole # 4 Blood cultures x2 no growth - Physical Exam General Appearance: alert, no apparent distress EENT: No scleral icterus, No thrush Respiratory: lungs clear, No respiratory distress Cardiac/Chest: regular rate, rhythm Abdomen: tender (Left lower quadrant), No distended ICD10 Worksheet Patient Problems: Problems Problem Status Onset Abdominal pain Acute Diverticulitis Acute Pericolonic abscess Acute Diverticulitis Acute
[2017-12-18] MEDS ORDERED: BISACODYL 10 MG SUPP PR PRN (14:05)
[2017-12-18] MEDS ORDERED: SENNOSIDES 1 TAB PO PRN ×2 (14:06→14:30)
--- NOTE | 2017-12-18 16:19 | HOSPPROG ---
Hospitalist Progress Note Assessment/Plan: Subjective Follow-up on intra-abdominal abscess Patient states she is feeling much better than the days prior. Her diet has been advanced to clears. She did state that it has been about 7 days and her last bowel movement. She has had issues with constipation in the past and states that the Dulcolax per rectum has been helpful. Otherwise we discussed at our tentative plan is for reassessment with a CT scan in the morning. Objective Vital signs as detailed below Physical exam General-patient appears comfortable she is awake alert conversant no acute distress Cardiac-regular rate and rhythm no murmurs Lungs-Clear to auscultation with normal respiratory effort Abdomen-nondistended nontender in the right abdomen no significant tenderness with mild palpation on the left. Bowel sounds normal -no Hanna catheter in place Extremities-no significant pitting edema Labs as detailed below Assessment plan 1. Intra-abdominal abscess-appreciate surgery and Infectious disease's assistance on the case. Continue and and antibiotics per ID's recommendations. Pending repeat CT scan in the morning for reassessment. 2. Leukocytosis-trending down with antibiotic therapy 3. Anemia-mild. Possibly inflammatory in etiology. Continue to trend 4. Constipation-Dulcolax p.r. Added. 5. Depression-continue with SSRI therapy 6. DVT prophylaxis- Lovenox 7. Disposition-continue work with PT and OT I would anticipate she would be able to return home once medically ready. Objective: Vital Signs Temp Pulse Resp BP Pulse Ox 36.8 C 66 16 156/81 H 95 12/18/17 15:05 12/18/17 15:05 12/18/17 15:05 12/18/17 15:05 12/18/17 15:05 Laboratory Results 12/18/17 05:10 12/17/17 04:40 12/17/17 12/18/17 12/19/17 05:59 05:59 05:59 Intake Total 5098 1000 Balance 5098 1000 ICD10 Worksheet Patient Problems: Problems Problem Status Onset Abdominal pain Acute Diverticulitis Acute Pericolonic abscess Acute Diverticulitis Acute
[2017-12-18] MEDS ORDERED: diphenhydrAMINE 25 MG CAP PO PRN (20:25)
[2017-12-18] MEDS ORDERED: DIPHENHYDRAMINE CREAM TP PRN (20:25)
[2017-12-18] MEDS: HYDROCORTISONE 1% CREAM TP SCH (20:35)
[2017-12-19] MEDS: ACETAMINOPHEN 325 MG TAB PO PRN (00:36)
[2017-12-19 04:59] LABS: PLATELET COUNT 311 10^3/uL (150-400)
[2017-12-19] MEDS: oxyCODONE IR 5 MG TAB PO PRN ×5 (06:08→20:08)
[2017-12-19] MEDS: cefTRIAXone 2 GM in STERILE WATER INJ 20 ML IV SCH (08:11)
[2017-12-19] MEDS: ENOXAPARIN 40 MG/0.4 ML SYR SC SCH ×2 (08:11→12:30)
[2017-12-19] MEDS: DOCUSATE SODIUM 100 MG CAP PO SCH ×2 (08:11→20:09)
[2017-12-19] MEDS: FLUoxetine 10 MG CAP PO SCH (08:11)
[2017-12-19] MEDS: HYDROCORTISONE 1% CREAM TP SCH ×2 (08:13→20:09)
[2017-12-19] MEDS ORDERED: IOPAMIDOL (ISOVUE-300) 100 ML BTL ONE (09:59)
[2017-12-19] MEDS: POLYETHYLENE GLYCOL 3350 17 GM PKT PO SCH (10:32)
--- NOTE | 2017-12-19 11:27 | SOAPPROG ---
SOAP Progress Note Assessment/Plan: 12/16/17 09:39 Assessment: Improved since yesterday. temp down. pain slightly less. Although she has not passed flatus she is beginning to get hungry Plan: Continue IV antibiotic therapy. Consider a follow up CT in two days to see if the collection has become more amenable to percutaneous drainage. Do not anticipate urgent need for surgical intervention 12/18/17 08:30 Assessment: Improved! WBC decreased to 10K, afebrile, pain remarkably less - responding to antibiotics Plan: F/u CT of abdomen and pelvis tomorrow to aid in diagnosis and planning 12/19/17 11:22 Assessment: Stable/improving - Afebrile, WBC down to 8.5K with a drop in neutrophils to 72% . Slightly more tender in LLQ after diarrhea due to oral contrast this AM. CT shows mass/phlegmon to not have matured further. Plan: Dr. Hernandez will speak to IR about percutaneous drainage. If unable to drain, may consider outpatient antibiotic therapy Subjective: I'm more tender after the diarrhea that came in response to that oral liquid I took before the CT scan Objective: Vital Signs Temp Pulse Resp BP Pulse Ox 36.5 C 69 20 150/97 H 95 12/19/17 11:06 12/19/17 11:06 12/19/17 11:06 12/19/17 11:06 12/19/17 11:06 Laboratory Results 12/19/17 04:45 12/17/17 04:40 12/18/17 12/19/17 12/20/17 05:59 05:59 05:59 Intake Total 1650 Balance 1650 - Pending Discharge Pending Discharge Within 24 Hours: No Physical Exam - Physical Exam General Appearance: WD/WN, alert, mild distress Abdomen: normal bowel sounds, soft, other (slightly more tender in LLQ than yesterday on palpation) ICD10 Worksheet Patient Problems: Problems Problem Status Onset Abdominal pain Acute Diverticulitis Acute Pericolonic abscess Acute Diverticulitis Acute
[2017-12-19] MEDS ORDERED: ALTEPLASE 2 MG VIAL IVP PRN (15:05)
--- NOTE | 2017-12-19 15:32 | HOSPPROG ---
Hospitalist Progress Note Assessment/Plan: Subjective Follow-up on intra-abdominal abscess I have reviewed and case with Dr. Hernandez and Dr. Hernandez today. Patient states this morning she is feeling much better. After her oral contrast however she is having slightly worse abdominal symptoms. No emesis or subjective fevers. After discussion with Dr. Hernandez and Dr. Hernandez the tentative plan is to have interventional Radiology given opinion on drainage of the abscess seen on CT imaging. If no drain felt to be indicated then we would continue with antibiotic therapy. Objective Vital signs as detailed below Physical exam General-patient appears comfortable she is awake alert conversant no acute distress. Cardiac-regular rate and rhythm no murmurs appreciated. Lungs-Clear to auscultation with normal respiratory effort. Abdomen-nondistended nontender in the right abdomen. No major tenderness with mild palpation on the left. No rebound tenderness noted. Bowel sounds are normal. -no Hanna catheter in place Extremities-no significant pitting edema. Labs as detailed below Assessment and plan 1. Intra-abdominal abscess-in discussing her case with Dr. Hernandez today it is felt that the source is likely secondary to diverticular disease. On CT imaging the size is stable. Our next step is discussed the case with interventional Radiology to get an opinion on drain placement. Otherwise will plan on continuing with IV antibiotics per Dr. Hernandez recommendations. 2. Abdominal pain-continue with oral oxycodone and IV Dilaudid. 3. Constipation-improved patient did have a bowel movement last evening as well as this morning. We will continue with Dulcolax as needed per rectum. 4. Depression-continue Prozac at 10 mg daily 5. DVT prophylaxis-Lovenox. I will place this on hold in case of any drain placement tomorrow. 6. Disposition-continue work with PT and OT. I would anticipate she would be able to return home once medically ready. Will work with Case Management and Infectious Disease regarding antibiotic therapy. Objective: Vital Signs Temp Pulse Resp BP Pulse Ox 36.5 C 69 20 150/97 H 96 12/19/17 11:06 12/19/17 11:06 12/19/17 11:06 12/19/17 11:06 12/19/17 12:32 Laboratory Results 12/19/17 04:45 12/17/17 04:40 12/18/17 12/19/17 12/20/17 05:59 05:59 05:59 Intake Total 1650 Balance 1650 ICD10 Worksheet Patient Problems: Problems Problem Status Onset Abdominal pain Acute Diverticulitis Acute Pericolonic abscess Acute Diverticulitis Acute
--- NOTE | 2017-12-19 15:51 | PCMIDPN ---
Assessment/Plan: Assessment/Plan: * Pelvic phlegmon: CT shows similar findings to initial CT scan. Will revisit with interventional Radiology regarding feasibility of drainage as does appear to have some fluid component. Continue ceftriaxone and metronidazole. Will place PICC line in a.m. as favor continued IV therapy rather than fluoroquinolone given potential for QT prolongation with concomitant Prozac and higher likelihood of resistance in E coli to fluoroquinolones. May transition ceftriaxone and metronidazole to ertapenem if has persistent decreased appetite in event metronidazole contributing. Risks and benefits of PICC line including potential for PICC associated infection or DVT discussed. Time spent, 25 min, of which greater than half was spent in education/counseling /coordination of care related to pelvic phlegmon. 12/19/17 15:48 Subjective: Patient felt better this a.m. but now with increased lower abdominal pain. Remains with decreased appetite. Objective: Vital Signs Temp Pulse Resp BP Pulse Ox 36.5 C 69 20 150/97 H 96 12/19/17 11:06 12/19/17 11:06 12/19/17 11:06 12/19/17 11:06 12/19/17 12:32 Laboratory Results 12/19/17 04:45 12/17/17 04:40 12/18/17 12/19/17 12/20/17 05:59 05:59 05:59 Intake Total 1650 Balance 1650 Ceftriaxone # 6 Metronidazole # 5 Blood cultures x2 no growth CT abdomen pelvis reviewed with similar findings to initial CT scan although now more suggestive of diverticular etiology - Physical Exam General Appearance: alert, no apparent distress EENT: No scleral icterus, No thrush Abdomen: tender (Left lower quadrant with voluntary guarding), No distended Skin: No rash ICD10 Worksheet Patient Problems: Problems Problem Status Onset Abdominal pain Acute Diverticulitis Acute Pericolonic abscess Acute Diverticulitis Acute
--- NOTE | 2017-12-19 16:17 | ASMTCMCOM ---
CM Note CM Note Notes: Spoke with RN, plan to see if the abscess can be drained tomorrow and will have PICC line placed. Therapies not ordered at this time, discharge plan remains the same, likely to discharge home independently with family. CM available to support with any CM needs. Current D/C Plan: Discharge likely home independent with family. Date TBD, possibly 12/20/17. Date Signed: 12/19/2017 04:16 PM Electronically Signed By:Tricia Garza
[2017-12-19] MEDS: DIAZEPAM 5 MG TAB PO PRN (18:04)
[2017-12-19] MEDS ORDERED: HYDROmorphone HCL/NS 0.5 MG/ML SYR IVP PRN (18:52)
[2017-12-20] MEDS: FLUoxetine 10 MG CAP PO SCH (08:56)
[2017-12-20] MEDS: cefTRIAXone 2 GM in STERILE WATER INJ 20 ML IV SCH (08:56)
[2017-12-20] MEDS: oxyCODONE IR 5 MG TAB PO PRN ×4 (08:57→22:38)
[2017-12-20] MEDS: POLYETHYLENE GLYCOL 3350 17 GM PKT PO SCH (09:05)
[2017-12-20] MEDS: DOCUSATE SODIUM 100 MG CAP PO SCH ×2 (09:05→20:10)
[2017-12-20] MEDS: HYDROCORTISONE 1% CREAM TP SCH ×2 (09:06→20:10)
--- NOTE | 2017-12-20 10:54 | SOAPPROG ---
SOAP Progress Note Assessment/Plan: 12/16/17 09:39 Assessment: Improved since yesterday. temp down. pain slightly less. Although she has not passed flatus she is beginning to get hungry Plan: Continue IV antibiotic therapy. Consider a follow up CT in two days to see if the collection has become more amenable to percutaneous drainage. Do not anticipate urgent need for surgical intervention 12/18/17 08:30 Assessment: Improved! WBC decreased to 10K, afebrile, pain remarkably less - responding to antibiotics Plan: F/u CT of abdomen and pelvis tomorrow to aid in diagnosis and planning 12/19/17 11:22 Assessment: Stable/improving - Afebrile, WBC down to 8.5K with a drop in neutrophils to 72% . Slightly more tender in LLQ after diarrhea due to oral contrast this AM. CT shows mass/phlegmon to not have matured further. Plan: Dr. Hernandez will speak to IR about percutaneous drainage. If unable to drain, may consider outpatient antibiotic therapy 12/20/17 10:49 Assessment: Continues to improve. Less abdominal pain. Input from IR still pending. PICC to be placed for chronic antibiotic administration Note: Daughter to arrive tonight Plan: Continue non-operative treatment Nothing to add at this point from surgery although surgery may be indicated in the future. Surgery will sign off at this time. Please re-contact as needed. Subjective: I'm feeling better! pain is more localized and less intense. Objective: Vital Signs Temp Pulse Resp BP Pulse Ox 36.8 C 84 18 124/72 H 93 12/20/17 07:43 12/20/17 07:43 12/20/17 07:43 12/20/17 07:43 12/20/17 07:43 Laboratory Results 12/19/17 04:45 12/17/17 04:40 12/19/17 12/20/17 12/21/17 05:59 05:59 05:59 Intake Total 1650 250 Balance 1650 250 - Time Spent With Patient Time Spent With Patient: 15 Physical Exam - Physical Exam General Appearance: WD/WN, alert, mild distress Abdomen: normal bowel sounds, non-tender, soft, distended, other (mild LLQ tenderness) ICD10 Worksheet Patient Problems: Problems Problem Status Onset Abdominal pain Acute Diverticulitis Acute Pericolonic abscess Acute Diverticulitis Acute
[2017-12-20] MEDS: DIAZEPAM 5 MG TAB PO PRN (12:12)
--- NOTE | 2017-12-20 13:01 | PCMIDPN ---
Assessment/Plan: Assessment: Pelvic inflammation status post diverticulitis. By latest imaging is not a drainable collection percutaneously due to its difficult positioning. Currently covering with ceftriaxone and metronidazole. Patient looks good clinically. Given her history she is likely to need a sigmoid resection upcoming. I do not believe this hospital visit is the optimum time for this intervention. Instead I think the optimum plan would be to continue her on IV ceftriaxone and metronidazole for another 10 days approximating 2 weeks and then schedule her for elective sigmoid resection prior to discontinuing antibiotics. Given her retained extraintestinal collection I think her risk of recurrence of disease is quite high if antibiotics were discontinued for appreciable time prior to surgery. Plan: 1. Continue IV ceftriaxone and metronidazole. 2. Discussion with daughter about upcoming surgical plans tomorrow. 12/16/17 12:28 12/16/17 12:32 12/20/17 12:59 Subjective: Patient is sitting in her hospital bed. She feels back to baseline and most respects. Denies any fevers or chills. Tolerating both ceftriaxone and Flagyl without issue. Objective: Ceftriaxone # 7 Metronidazole # 6 Vital Signs Temp Pulse Resp BP Pulse Ox 36.8 C 83 18 136/85 H 93 12/20/17 11:31 12/20/17 11:31 12/20/17 11:31 12/20/17 11:31 12/20/17 11:31 Laboratory Results 12/19/17 04:45 12/17/17 04:40 12/19/17 12/20/17 12/21/17 05:59 05:59 05:59 Intake Total 1650 250 Balance 1650 250 - Physical Exam General Appearance: WD/WN, alert, no apparent distress, non-toxic Abdomen: non-tender, soft, distended Skin: normal color, warm/dry, No rash Neuro/Psych: alert, normal mood/affect, oriented x 3 ICD10 Worksheet Patient Problems: Problems Problem Status Onset Abdominal pain Acute Diverticulitis Acute Pericolonic abscess Acute Diverticulitis Acute
--- NOTE | 2017-12-20 14:05 | ASMTCMCOM ---
CM Note CM Note Notes: CM spoke w/ Dr Gonzales and Micaela, RN regarding d/c POC. Pt will require manager terminal ivabx. Pt had a PICC line placed today. Referral made to [facility]. Pt is agreeable to using [facility]. Funmi from [facility] came and spoke to pt about cost of medications. Pt agreeable to use [facility]. Referral made to [facility] and they are able to accept. CM to follow. Plan: Luis with MÓNICA CHAIDEZ Date Signed: 12/20/2017 02:04 PM Electronically Signed By:SHELBY Adames
--- NOTE | 2017-12-20 15:51 | HOSPPROG ---
Hospitalist Progress Note Assessment/Plan: Subjective Follow-up on intra-abdominal abscess Patient states that her pain is well controlled today. She has only used oral oxycodone. We did discuss trying to use only the oral medications this evening get a good sense of her pain control with oral and IV meds. I reviewed her case with Dr. Gonzales with Infectious Disease as well as with Dr. Hernandez with surgery. Interventional Radiology did not feel that they could adequately get to the fluid collection secondary to its location. The current thought is for continuation of IV antibiotics for 1-2 weeks and then look at elective sigmoidectomy. The patient's daughter is a trauma surgeon at [employer] on the [facility] and she will be flying in this evening. I think with her arrival we can sit down and review imaging studies and the current plan and then move forward. A PICC line was placed today in the right upper extremity. Since there is no plan for immediate surgical intervention Dr. Hernandez will sign off for now. Objective Vital signs as detailed below Physical exam General patient appears comfortable she is visiting with her at the bedside. Awake alert conversant no acute distress. Cardiac-regular rate and rhythm no murmurs noted. Lungs-clear auscultation normal respiratory effort. Abdomen-no significant distention. Normal bowel sounds. She tolerates palpation of her abdomen reasonably well but is most tender in left lower quadrant. -no Hanna catheter in place Extremities-no significant pitting edema. Labs as detailed below Assessment plan 1. Intra-abdominal abscess-suspecting likely diverticular source. In discussions with her medical team and involving Infectious Disease and surgery, the current thought is to continue with the IV antibiotics for 1-2 weeks and planned elective sigmoidectomy in 1-2 weeks time. Her case was discussed with interventional radiology today tender to the possibility of a percutaneous drain however due to the location of the collection he was felt to be rather difficult to obtain. 2. Abdominal pain-today with good control with oral oxycodone. 3. Constipation-improved. Patient has had historically good response with as- needed rectal Dulcolax. 4. Depression-continue current Prozac. 5. DVT prophylaxis-Lovenox. This was placed on hold today for possible drain placement. Local ahead and resume tomorrow. 6. Disposition-she appears strong enough to return back to home when medically ready. Likely could discharge in the coming days with a plan for continuation of IV antibiotics and short-term follow-up with surgery. 40 min of time dedicated to patient care today over 50% of which dedicated to counseling and coordination in discussions with both the patient and her family as well as Dr. Hernandez and Dr. Gonzales. Objective: Vital Signs Temp Pulse Resp BP Pulse Ox 36.8 C 83 18 136/85 H 93 12/20/17 11:31 12/20/17 11:31 12/20/17 11:31 12/20/17 11:31 12/20/17 11:31 Laboratory Results 12/19/17 04:45 12/17/17 04:40 12/19/17 12/20/17 12/21/17 05:59 05:59 05:59 Intake Total 1650 250 Balance 1650 250 ICD10 Worksheet Patient Problems: Problems Problem Status Onset Abdominal pain Acute Diverticulitis Acute Pericolonic abscess Acute Diverticulitis Acute
[2017-12-21] MEDS: oxyCODONE IR 5 MG TAB PO PRN ×3 (04:09→13:04)
[2017-12-21] MEDS: cefTRIAXone 2 GM in STERILE WATER INJ 20 ML IV SCH (08:01)
[2017-12-21] MEDS: FLUoxetine 10 MG CAP PO SCH (08:02)
[2017-12-21] MEDS: DOCUSATE SODIUM 100 MG CAP PO SCH (08:02)
[2017-12-21] MEDS: HYDROCORTISONE 1% CREAM TP SCH (08:07)
[2017-12-21] MEDS ORDERED: ENOXAPARIN 40 MG/0.4 ML SYR SC SCH (09:00)
[2017-12-21] MEDS: POLYETHYLENE GLYCOL 3350 17 GM PKT PO SCH (09:41)
--- NOTE | 2017-12-21 10:40 | PCMIDPN ---
Assessment/Plan: Assessment/Plan: * Pelvic phlegmon: Clinically improved with decreasing left lower quadrant pain and improved oral intake. Continue ceftriaxone and metronidazole. Have asked Dr. Govea to assist in her ongoing management as likely will need surgical intervention in the future. Probable DC home today on ceftriaxone and metronidazole with follow-up imaging over time to assess for resolution versus persistence of pelvic phlegmon. Reviewed yesterday with interventional Radiology and fluid collection not felt amenable to percutaneous drainage. 12/21/17 10:38 Subjective: Patient feels clinically improved with decreased left lower quadrant pain and tolerating some solid intake this a.m.. Objective: Vital Signs Temp Pulse Resp BP Pulse Ox 36.7 C 61 16 133/72 H 96 12/21/17 07:20 12/21/17 07:20 12/21/17 07:20 12/21/17 07:20 12/21/17 07:20 Laboratory Results 12/19/17 04:45 12/17/17 04:40 12/20/17 12/21/17 12/22/17 05:59 05:59 05:59 Intake Total 250 550 Balance 250 550 Ceftriaxone # 8 Metronidazole # 7 Blood cultures x2 no growth - Physical Exam General Appearance: alert, no apparent distress EENT: dry mucous membranes, No scleral icterus, No thrush Respiratory: lungs clear, No respiratory distress Cardiac/Chest: regular rate, rhythm Abdomen: tender (Left lower quadrant with voluntary guarding although less prominent than prior) - Line/s RUE PICC Lines: other (Mild tenderness at insertion site), No drainage, No erythema ICD10 Worksheet Patient Problems: Problems Problem Status Onset Abdominal pain Acute Diverticulitis Acute Pericolonic abscess Acute Diverticulitis Acute
--- NOTE | 2017-12-21 10:43 | PDIAF ---
- Diagnosis Diagnosis: Pelvic abscess Code Status: Full Code - Medication Management Discharge Medications: Medications to Continue on Transfer Diazepam [Valium 5 MG (*)] 5 mg PO DAILY PRN 11/26/16 [Last Taken Unknown] FLUoxetine [Prozac 10 MG (*)] 10 mg PO DAILY 11/26/16 [Last Taken Unknown] Ascorbic Acid [Vitamin C 500 mg (*)] 500 mg PO BID 12/14/17 [Last Taken Unknown] Calcium Carbonate/Vitamin D3 [Calcium 500 + Vit D Caplet] 1 each PO BID [Last Taken Unknown] Cholecalciferol Vit D3 [Vitamin D3 2000 units tab (OTC)] 2,000 units PO DAILY [Last Taken Unknown] Multivitamins [Multivitamin (*)] 1 each PO DAILY 12/14/17 [Last Taken Unknown] Treadwell-3 Fatty Acids [Fish Oil 1000 mg (*)] 1,000 mg PO TID 12/14/17 [Last Taken Unknown] oxyCODONE IR [Oxycodone Ir (*)] 10 mg PO BID PRN 12/14/17 [Last Taken 12/14/17 13:30 10MG] [facility] Antibiotics: Ceftriaxone 2 g IV Q 24 hr, metronidazole 500 mg orally q.8 hours [facility] Antibiotic Stop Date: 01/03/18 Discharge Medications: Refer to the Discharge Home Medication list for PRN reason. PICC Care - Routine: Yes - Labs/Radiology CBC w/diff Date: 12/23/17 (Weekly Q ) CMP Date: 12/23/17 (Weekly Q ) Call or Fax Lab and Imaging Results to: Dr. Hernandez, - Follow Up Care Current Providers and Referrals: Imer Jasso MD [Primary Care Provider] - As per Instructions Imer Hernandez MD [Medical Doctor] - Ion Hernandez MD [Medical Doctor] - 12/28/17 9:00 am
[2017-12-21 11:55] VITALS: BP 120/75
--- NOTE | 2017-12-21 14:39 | ASMTCMCOM ---
CM Note CM Note Notes: CM met w/ pt for dispo planning. Pt would like to come to [facility] outpatient infusion instead of having home infusion. CM notified [facility] and [facility] of this. Laura will call pt directly to schedule a time for her to come in for the outpatient infusion. CM available for changes. Plan: Independent Date Signed: 12/21/2017 02:38 PM Electronically Signed By:SHELBY Adames
--- NOTE | 2017-12-21 16:05 | ASDISCHSUM ---
Discharge Information Plan Status:Home with Home Health Medically Cleared to Leave:12/21/2017 Discharge Date:12/21/2017 04:02 PM D/C Disposition: ADT D/C Disposition:Home, Routine, Self-Care Projected Discharge Date:12/21/2017 11:00 AM Transportation at D/C: Discharge Delay Reason: Follow-Up Date:12/21/2017 11:00 AM Discharge Slot: Final Diagnosis: Placement Information Referral Type:Home Infusion Referral ID:[id number] Provider Name: Address 1: Phone Number: Address 2: Fax Number: City: Selection Factors: State: Referral Type:*Home Health Care Services Referral ID:[id number] Provider Name: Address 1: Phone Number: Address 2: Fax Number: City: Selection Factors: State: Patient Contact Information Contact Name:SAUL Relationship: Address:[facility] [address] City:[place] Alternate Phone: State/Zip Code:[place] [address] Email: Financial Information Financial Class:HMO and PPO Plans Primary Plan Desc:[employer] [place] [employer] Primary Plan Number:[id number] Secondary Plan Desc: Secondary Plan Number: Assessment Information [facility] CM Progress Note CM Note CM Note Notes: Johan w/RN, anticipate pt will dc home w/support of when medically stable. CM available for any changes. DC Plan: Independent Date Signed: 12/15/2017 04:15 PM Electronically Signed By:Sharon Mei RN [facility] CM Progress Note CM Note CM Note Notes: Johan w/MÓNICA, plan remains the same, anticipate pt will dc home w/support of family when medically stable. CM available for any changes. DC Plan: Independent Date Signed: 12/17/2017 02:33 PM Electronically Signed By:Sharon Mei RN [facility] CM Progress Note CM Note CM Note Notes: Spoke with RN, plan to see if the abscess can be drained tomorrow and will have PICC line placed. Therapies not ordered at this time, discharge plan remains the same, likely to discharge home independently with family. CM available to support with any CM needs. Current D/C Plan: Discharge likely home independent with family. Date TBD, possibly 12/20/17. Date Signed: 12/19/2017 04:16 PM Electronically Signed By:Tricia Garza [facility] CM Progress Note CM Note CM Note Notes: CM spoke w/ Dr Gonzales and MÓNICA Hinojosa regarding d/c POC. Pt will require supervisor intermediates ivabx. Pt had a PICC line placed today. Referral made to [facility]. Pt is agreeable to using [facility]. Funmi from [facility] came and spoke to pt about cost of medications. Pt agreeable to use [facility]. Referral made to [facility] and they are able to accept. CM to follow. Plan: Luis with MÓNICA CHAIDEZ Date Signed: 12/20/2017 02:04 PM Electronically Signed By:SHELBY Adames Case Management Discharge Plan Note Case Management Discharge Discharge Order Complete? Answers: Yes Patient to Obtain Answers: via Family Medications Transportation Arranged Answers: Family/Friends EMTALA Complete Answers: No Case Management Transport Answers: No Form Complete Faxed Final Orders Answers: Yes Agency/Facility Transfer Answers: Yes Report Printed & Faxed to Receiving Agency Family Notified Answers: No Discharge Comments Notes: Pt is being discharged today. CM notified [facility] and [facility] of the d/c. CM sent [facility] d/c orders. CM provided MÓNICA Elizondo w/ phone number to give report. CM available for changes. Plan: MÓNICA CHAIDEZ w/ [facility] Date Signed: 12/21/2017 02:28 PM Electronically Signed By:SHELBY Adames [facility] Progress Note CM Note BETH Note Notes: CM met w/ pt for dispo planning. Pt would like to come to [facility] outpatient infusion instead of having home infusion. CM notified [facility] and [facility] of this. Laura will call pt directly to schedule a time for her to come in for the outpatient infusion. BETH available for changes. Plan: Independent Date Signed: 12/21/2017 02:38 PM Electronically Signed By:SHELBY Adames Intervention Information
--- NOTE | 2017-12-21 16:10 | GDS ---
[f rep st] DISCHARGE SUMMARY DISCHARGE DIAGNOSIS: 1. Intraabdominal abscess, likely related to diverticular disease. 2. History of recurrent diverticulitis. 3. Depression. CONSULTANTS: 1. Dr. Ion Hernandez, Infectious Disease. 2. Dr. Imer Hernandez, General Surgery. 3. Dr. Lexy Tadeo, CHIEF OF POLICE. HISTORY: For details, please see the history and physical dated December 14, 2017. In brief, Ms. Montero is a 62-year-old female with history of recurrent diverticulitis who [facility] with severe abdominal pain. CT imaging revealed a complex fluid collection in the left pelvic sidewall, possibly related to residual or recurrent peridiverticular abscess. Consideration was also given a tubo-ovarian abscess given its proximity to the left ovary. General Surgery consult was obt ained and felt this was more likely to be a TOA. CHIEF OF POLICE consult was obtained, and reviewed the imaging and felt the ovary was clear. Given her history of diverticular disease, this seems more likely to b e related to a diverticular abscess. However, it is odd that she did not have associated diverticuli tis on her imaging. She was treated with ceftriaxone and Flagyl. Her white blood cell count trended down from 17.7 to normal at 8.5. She has remained afebrile. Her pain significantly improved. Repe at CT was performed 12/19 and unfortunately showed no significant change in the size or complexity of her fluid collection which continues to measure 4 cm in diameter. It is felt that given her clinica l improvement, she is stable for discharge home to complete IV antibiotic therapy. A PICC line was p laced for this purpose. It is recommended she follow up with General Surgery in the next 1 to 2 week s for consideration of outpatient sigmoid colectomy for definitive management once the acute inflamma tory process is improved. She is tolerating a full diet and is hemodynamically stable on the day of discharge. DISPOSITION: Patient is discharged home in stable condition. FOLLOWUP: 1. Dr. Grant Govea, General Surgery. 2. Dr. Ion Hernandez, Infectious Disease, 12/28 at [address] Imer Jasso, Primary Care. DISCHARGE MEDICATIONS: Please see [facility] for completed outpatient medication list. New medications on discharge include: 1. Ceftriaxone 2 g IV daily through 01/03/2018. 2. Oxycodone 5 to 10 mg p.o. q.3 hours p.r.n.,#20, no refills. 3. Senokot 1 tablet p.o. twice daily p.r.n. constipation. She will continue all other outpatient medications as previously prescribed. /[id number]/MODL
== END 2017-12-21 16:02 | disposition home or self-care (01) | DRG 392 ==
LOC: F3E 20:40
PROVIDERS: ADMIT Internal Medicine; ATTEND Hospitalist
PROC: 02HV33Z Insertion of Infusion Device into Superior Vena Cava, Percutaneous Approach (ICD-10-PCS; principal; 2017-12-20)
DX: K57.20 Diverticulitis of large intestine with perforation and abscess without bleeding (principal); F32.9 Major depressive disorder, single episode, unspecified; K59.00 Constipation, unspecified; Z85.828 Personal history of other malignant neoplasm of skin; Z86.718 Personal history of other venous thrombosis and embolism
CPT/HCPCS: 96374; C1751; J0696; J1170; J1650; J1956; J2405; Q9967

== ENCOUNTER → 2017-12-31 | Outpatient (CLI) | payer OTHER ==
[~2017-12-31] MED LIST changes: -GADOBUTROL 10 ML VIAL IVP ONE; +IOPAMIDOL (ISOVUE-300) 100 ML BTL ONE
== END ==
LOC: FIMAGING 14:46
PROVIDERS: ATTEND Internal Medicine Infectious Disease
DX: K57.20 Diverticulitis of large intestine with perforation and abscess without bleeding (principal)
CPT/HCPCS: Q9967

== ENCOUNTER 2018-01-01 19:39 | Emergency (ER) | payer OTHER ==
[2018-01-01] MEDS ORDERED: NS 500 ML IV ONE (20:12)
[2018-01-01 20:18] LABS: PLATELET COUNT 511 10^3/uL (150-400)
--- NOTE | 2018-01-01 20:18 | EDPHY ---
H & P Time Seen by Provider: 01/01/18 20:01 HPI/ROS: CHIEF COMPLAINT: Weakness HISTORY OF PRESENT ILLNESS: Patient is a 62-year-old female with a diagnosis of diverticulitis an intra-abdominal abscess on long-term antibiotics who presents emergency department with fatigue and weakness. The patient states she was discharged from the hospital on 12/21/2017. A PICC line is placed. She is on Rocephin IV daily and Flagyl orally. She states she has been treated for an abscess. The plan is to have her abscess removed by Dr. Govea in 1-2 weeks. Did not remove abscess yet because it was too infected. The patient states that starting yesterday she has had increased fatigue. She returned home from work at 5:00 p.m. Yesterday and was exhausted. She called Dr. Taco Gonzales was on-call for Dr. Hernandez. Their plan was to see the patient did overnight. The patient awoke this morning and felt slightly better. She went to work until 1. At that time she returned home and again felt very fatigued. She states this is atypical. She denies any fever. No chest pain or shortness of breath. She has ongoing left lower quadrant pain which is present since her diagnosis. No vomiting or diarrhea. REVIEW OF SYSTEMS: My complete review of systems is negative except as mentioned in the HPI. Past Medical/Surgical History: Includes intra-abdominal abscess, likely related diverticular disease, diverticulitis, depression Social history: The patient does not smoke. Patient is . Smoking Status: Never smoked Physical Exam: Vitals noted GENERAL: No acute distress, alert. HEENT: Eyes normal to inspection, normal pharynx, no signs of dehydration. NECK: No thyromegaly, no lymphadenopathy, supple. RESPIRATORY: Clear to auscultation bilaterally, no rales, rhonchi or wheezing. CVS: Regular rate and rhythm, no rubs, murmurs, or gallops. ABDOMEN: Soft, left lower quadrant tenderness to palpation with no rebound or guarding, nondistended, no organomegaly. BACK: Normal to inspection, no CVA tenderness. SKIN: Normal color, no rash, warm, dry. No pallor. EXTREMITIES: No pedal edema, no joint swelling. NEURO/PSYCH: Alert and oriented, normal mood and affect, normal motor sensory exam. Constitutional: Initial Vital Signs Temperature (C) 37.1 C 05/05/18 19:43 Heart Rate 68 01/01/18 19:43 Respiratory Rate 16 01/01/18 19:43 Blood Pressure 123/84 H 01/01/18 19:43 O2 Sat (%) 97 01/01/18 19:43 O2 Delivery Mode Room Air Allergies/Adverse Reactions: latex [Latex] Allergy (Verified 01/01/18 19:46) HIVES, EYES SWELL Home Medications: Medication Instructions Recorded Diazepam [Valium 5 MG (*)] 5 mg PO DAILY PRN 11/26/16 FLUoxetine [Prozac 10 MG (*)] 10 mg PO DAILY 11/26/16 Ascorbic Acid [Vitamin C 500 mg 500 mg PO BID 12/14/17 (*)] Calcium Carbonate/Vitamin D3 1 each PO BID 12/14/17 [Calcium 500 + Vit D Caplet] Cholecalciferol Vit D3 [Vitamin D3 2,000 units PO DAILY 12/14/17 2000 units tab (OTC)] Multivitamins [Multivitamin (*)] 1 each PO DAILY 12/14/17 [place]-3 Fatty Acids [Fish Oil 1000 1,000 mg PO TID 12/14/17 mg (*)] oxyCODONE IR [Oxycodone Ir (*)] 10 mg PO BID PRN 12/14/17 Sennosides [Senokot] 1 tab PO BID PRN tab 12/21/17 cefTRIAXone [Rocephin] 2 gm IV DAILY vial 12/21/17 oxyCODONE IR [Oxycodone Ir (*)] 5 - 10 mg PO Q3HRS PRN #20 tab 12/21/17 Medical Decision Making ED Course/Re-evaluation: In the emergency department I discussed possible etiologies with the patient. I answered all her questions. I reviewed the patient's record from her previous visit. Of note, the patient had a CT yesterday. This showed multiloculated enhancing complex collection within the sigmoid mesentery. Had decreased in size from 2 weeks ago. The surrounding inflammatory fat stranding is also decreased. An IV was placed. Laboratory studies were obtained. Patient was given normal saline 5 mL IV. CBC was unremarkable. White count was normal. Chemistry panel is unremarkable. Normal renal function. LFTs were normal. Lipase was elevated at 517. UA negative. 2117: I discussed the results with the patient. I answered all her questions. The patient is reassured with her laboratory studies. She will return with worsening symptoms. She was given warnings prior to leaving. Differential Diagnosis: My differential includes but is not limited to abscess, diverticulitis, electrolyte abnormality, sugar abnormality, bacteremia, sepsis - Data Points Laboratory Results: Laboratory Results 01/01/18 20:05 01/01/18 20:05 01/01/18 01/01/18 01/01/18 20:50 20:05 20:05 WBC 5.86 10^3/uL 10^3/uL (3.80-9.50) RBC 4.15 10^6/uL L 10^6/uL (4.18-5.33) Hgb 12.7 g/dL g/dL (12.6-16.3) Hct 38.9 % % (38.0-47.0) MCV 93.7 fL fL (81.5-99.8) MCH 30.6 pg pg (27.9-34.1) MCHC 32.6 g/dL g/dL (32.4-36.7) RDW 13.5 % % (11.5-15.2) Plt Count 511 10^3/uL H 10^3/uL (150-400) MPV 9.5 fL fL (8.7-11.7) Neut % (Auto) 65.0 % % (39.3-74.2) Lymph % (Auto) 21.2 % % (15.0-45.0) [place] % (Auto) 10.1 % % (4.5-13.0) Eos % (Auto) 2.4 % % (0.6-7.6) Baso % (Auto) 1.0 % % (0.3-1.7) Nucleat RBC Rel Count 0.0 % % (0.0-0.2) Absolute Neuts (auto) 3.81 10^3/uL 10^3/uL (1.70-6.50) Absolute Lymphs (auto) 1.24 10^3/uL 10^3/uL (1.00-3.00) Absolute Monos (auto) 0.59 10^3/uL 10^3/uL (0.30-0.80) Absolute Eos (auto) 0.14 10^3/uL 10^3/uL (0.03-0.40) Absolute Basos (auto) 0.06 10^3/uL 10^3/uL (0.02-0.10) Absolute Nucleated RBC 0.00 10^3/uL 10^3/uL (0-0.01) Immature Gran % 0.3 % % (0.0-1.1) Immature Gran # 0.02 10^3/uL 10^3/uL (0.00-0.10) Sodium 138 mEq/L mEq/L (135-145) Potassium 4.5 mEq/L mEq/L (3.5-5.2) Chloride 101 mEq/L mEq/L (97-110) Carbon Dioxide 24 mEq/l mEq/l (22-31) Anion Gap 13 mEq/L mEq/L (8-16) BUN 11 mg/dL mg/dL (7-23) Creatinine 0.7 mg/dL mg/dL (0.6-1.0) Estimated GFR > 60 Glucose 89 mg/dL mg/dL (70-100) Calcium 9.8 mg/dL mg/dL (8.5-10.4) Total Bilirubin 0.4 mg/dL mg/dL (0.1-1.4) Conjugated Bilirubin 0.4 mg/dL mg/dL (0.0-0.5) Unconjugated Bilirubin 0.0 mg/dL mg/dL (0.0-1.1) AST 28 IU/L IU/L (14-46) ALT 43 IU/L IU/L (9-52) Alkaline Phosphatase 88 IU/L IU/L (38-126) Total Protein 7.0 g/dL g/dL (6.3-8.2) Albumin 3.9 g/dL g/dL (3.5-5.0) Lipase 517 IU/L H IU/L (23-300) Urine Color YELLOW Urine Appearance HAZY Urine pH 7.0 (5.0-7.5) Ur Specific [place] 1.004 (1.002-1.030) Urine Protein NEGATIVE (NEGATIVE) Urine Ketones NEGATIVE (NEGATIVE) Urine Blood NEGATIVE (NEGATIVE) Urine Nitrate NEGATIVE (NEGATIVE) Urine Bilirubin NEGATIVE (NEGATIVE) Urine Urobilinogen NEGATIVE EU EU (0.2-1.0) Ur Leukocyte Esterase NEGATIVE (NEGATIVE) Urine RBC 1-3 /hpf /hpf (0-3) Urine WBC 1-3 /hpf /hpf (0-3) Ur Epithelial Cells TRACE /lpf /lpf (NONE-1+) Urine Mucus TRACE /lpf /lpf (NONE-1+) Urine Glucose NEGATIVE (NEGATIVE) Medications Given: Discontinued Medications Sodium Chloride (Ns) 500 mls @ 0 mls/hr IV EDNOW ONE; Wide Open PRN Reason: Protocol Stop: 01/01/18 20:13 Last Admin: 01/01/18 20:20 Dose: 500 mls Departure - Departure Disposition: Home, Routine, Self-Care Clinical Impression: Diverticulitis Condition: Good Instructions: Diverticulitis (ED) Additional Instructions: Return with increasing abdominal pain, fever, chills, weakness or any other concerns. You need close follow-up with her primary care physician as well as Infectious Disease. Referrals: Baljit Hernandez MD [Medical Doctor] - 3-4 days, if not improved Imer Jasso MD [Primary Care Provider] - 3-4 days, if not improved
[2018-01-01 21:42] VITALS: BP 109/75
== END 2018-01-01 21:46 | disposition home or self-care (01) ==
DX: K57.92 Diverticulitis of intestine, part unspecified, without perforation or abscess without bleeding (principal); E86.9 Volume depletion, unspecified; Z91.040 Latex allergy status

== ENCOUNTER 2018-01-14 07:15 | Inpatient (IN) | payer OTHER ==
[2018-01-12 12:08] LABS: PLATELET COUNT 242 10^3/uL (150-400)
[2018-01-26] MEDS ORDERED: cefOXitin SODIUM 2 GM in STERILE WATER INJ 21 ML IV ONE (06:00)
[2018-01-26] MEDS ORDERED: BUPIVACAINE 0.5% 30 ML SDV ONE (07:58)
[2018-01-26] MEDS ORDERED: ceFAZolin 1 GM/5 ML SYR ONE (07:58)
[2018-01-26] MEDS ORDERED: HEPARIN 1000 UNIT/1 ML MDV ONE ×2 (07:58→10:16)
[2018-01-26] MEDS ORDERED: ACETAMINOPHEN 500 MG TAB PO ONE (08:50)
[2018-01-26] MEDS ORDERED: LIDOCAINE 1% 2 ML INJ ID PRN (08:50)
[2018-01-26] MEDS ORDERED: LR 1,000 ML IV ONE (08:50)
[2018-01-26] MEDS ORDERED: ACETAMINOPHEN 500 MG TAB ONE (09:36)
[2018-01-26] MEDS ORDERED: MIDAZOLAM 2 MG/2 ML VIAL ONE (10:44)
[2018-01-26] MEDS ORDERED: fentaNYL 250 MCG/5 ML INJ ONE (10:52)
[2018-01-26] MEDS ORDERED: PROPOFOL/EMULSION 500 MG/50 ML BOTTLE IV ONE ×2 (10:52→11:59)
[2018-01-26] MEDS ORDERED: HYDROmorphONE/DILAUDID 2 MG/ML INJ IVP PRN (11:09)
[2018-01-26] MEDS ORDERED: LR 500 ML IV PRN (11:09)
[2018-01-26] MEDS ORDERED: NALOXONE HCL 0.4 MG/ML INJ IVP PRN ×2 (11:09→13:25)
[2018-01-26] MEDS ORDERED: DIAZEPAM 5 MG/ML 1 ML SYR IVP PRN (11:09)
[2018-01-26] MEDS ORDERED: ALBUTEROL 3 ML DEYVIAL IH PRN (11:09)
[2018-01-26] MEDS ORDERED: DEXAMETHASONE 4 MG/ML VIAL IVP PRN (11:09)
[2018-01-26] MEDS ORDERED: ONDANSETRON 4 MG/2 ML VIAL IVP PRN ×2 (11:09→13:23)
--- NOTE | 2018-01-26 11:09 | PDANEPAE ---
ANE History of Present Illness here for LAR ANE Past Medical History - Cardiovascular History Hx Hypertension: No Hx Arrhythmias: No Hx Chest Pain: No Hx Coronary Artery / Peripheral Vascular Disease: No Hx CHF / Valvular Disease: No Hx Palpitations: No Cardiovascular History Comment: low BP - Pulmonary History Hx COPD: No Hx Asthma/Reactive Airway Disease: No Hx Recent Upper Respiratory Infection: No Hx Oxygen in Use at Home: No Hx Sleep Apnea: No Sleep Apnea Screening Result - Last Documented: Negative - Neurologic History Hx Cerebrovascular Accident: No Hx Seizures: No Hx Dementia: No - Endocrine History Hx Diabetes: No - Renal History Hx Renal Disorders: No - Liver History Hx Hepatic Disorders: No - Neurological & Psychiatric Hx Hx Neurological and Psychiatric Disorders: Yes Neurological / Psychiatric History Comment: mild dystimia, anxiety - Cancer History Hx Cancer: No - Congenital Disorder History Hx Congenital Disorders: No - GI History Hx Gastrointestinal Disorders: No - Other Health History Other Health History: anemia - Chronic Pain History Chronic Pain: No - Surgical History Prior Surgeries: duprycans bilat hands ANE Review of Systems Review of systems is: negative Review of Systems: - Exercise capacity Exercise capacity: <4 METS METS (RN): 5 METS ANE Patient History - Allergies Allergies/Adverse Reactions: latex [Latex] Allergy (Verified 01/25/18 16:24) HIVES, EYES SWELL - Home Medications Home medications: home medication list seen and reviewed Home Medications: Diazepam [Valium 5 MG (*)] 5 mg PO DAILY PRN 11/26/16 [Last Taken 01/25/18 23:30 ] Ascorbic Acid [Vitamin C 500 mg (*)] 500 mg PO BID 12/14/17 [Last Taken 01/24/18 ] Calcium Carbonate/Vitamin D3 [Calcium 500 + Vit D Caplet] 1 each PO BID [Last Taken 01/24/18] Cholecalciferol Vit D3 [Vitamin D3 2000 units tab (OTC)] 2,000 units PO DAILY [Last Taken 01/25/18 09:00] Multivitamins [Multivitamin (*)] 1 each PO DAILY 12/14/17 [Last Taken 01/24/18] [place]-3 Fatty Acids [Fish Oil 1000 mg (*)] 1,000 mg PO TID 12/14/17 [Last Taken 01/24/18] FLUoxetine [Prozac 20 MG (*)] 20 mg PO DAILY 01/25/18 [Last Taken 01/25/18 09:00 ] Propylene Glycol/Peg 400/Pf [Systane 0.3-0.4% Eye Drops] 1 each OP DAILY PRN [Last Taken 01/24/18] metroNIDAZOLE [Flagyl 500 mg (*)] 1,000 mg PO DAILY 01/25/18 [Last Taken 09:00] - NPO status NPO Status: no food or drink >8 hours NPO Since - Liquids (Date): 01/25/18 NPO Since - Liquids (Time): 23:30 NPO Since - Solids (Date): 01/25/18 NPO Since - Solids (Time): 14:30 - Smoking Hx Smoking Status: Never smoked - Family Anes Hx Family Hx Anesthesia Complications: none ANE Labs/Vital Signs - Labs Result Diagrams: 01/12/18 12:00 01/12/18 12:00 - Vital Signs Vital Signs: reviewed preoperatively; see RN documention for details Blood Pressure: 120/81 Heart Rate: 75 Respiratory Rate: 12 O2 Sat (%): 95 Height: 162.56 cm Weight: 65.771 kg ANE Physical Exam - Airway Neck exam: FROM Mallampati Score: Class 1 Mouth exam: normal dental/mouth exam - Pulmonary Pulmonary: no respiratory distress - Cardiovascular Cardiovascular: regular rate and rhythym - ASA Status ASA Status: II ANE Anesthesia Plan Anesthesia Plan: general endotracheal anesthesia
[2018-01-26] MEDS ORDERED: MIDAZOLAM 2 MG/2 ML VIAL IVP ONE (11:11)
[2018-01-26] MEDS ORDERED: SUGAMMADEX SODIUM 200 MG/2 ML VIAL IVP ONE (13:10)
--- NOTE | 2018-01-26 13:21 | POSTOPPROG ---
Post Op Note Date of Operation: 01/26/18 Surgeon: Demond Govea Chimney Builder Helper: Maria T Peck Anesthesiologist: Cristofer Ying Anesthesia: GET(General Endotracheal) Pre-op Diagnosis: diverticulitis with abscess Post-op Diagnosis: same with tuboovarian abscess Procedure: lap assist sigmoid colectomy, L salpingoopherectomy, drainage of abscess Findings: gross purulence of L ovary, +diverticuli c inflammatory changes c perf Inf/Abcess present in the surg proc area at time of surgery?: Yes Depth: Organ Space EBL: 50-100 Complications: none Specimen(s): sigmoid colon c perf, L tube and ovary to pathology; swab of ovary for culture
[2018-01-26] MEDS ORDERED: Propylene Glycol/Peg 400/Pf [Systane 0.3-0.4% Eye Drops] 1 EACH OP PRN (13:24)
[2018-01-26] MEDS ORDERED: fentaNYL 100 MCG/2 ML INJ ONE (13:48)
[2018-01-26] MEDS: fentaNYL 100 MCG/2 ML INJ IVP PRN ×4 (13:49→14:59)
[2018-01-26] MEDS: NS W/ 20 KCl/L 1,000 ML IV SCH (15:55)
--- NOTE | 2018-01-26 16:28 | PDMN ---
Medical Necessity Medical necessity: Pt meets INPT criteria per MD and [facility] [place] [facility] S-[id number] Bowel Surgery: Colectomy, Partial by Laparoscopy ( IPO surgery).
[2018-01-26] MEDS: HYDROmorphONE/DILAUDID 1 MG/ML INJ IVP PRN ×2 (16:36→18:27)
[2018-01-26] MEDS: HYDROmorphONE/DILAUDID 6 MG/30 ML PCA IV PRN (20:00)
--- NOTE | 2018-01-26 21:26 | SOAPPROG ---
SOAP Progress Note Assessment/Plan: Assessment/Plan: 62 Y F s/p lap assisted sigmoid colectomy with L salpingoopherectomy for perforated diverticulitis with L adnexal involvement. POD#0. Post op check. Seen with Dr. Govea. AFVSS. Wounds intact. Alert, nad. Pain controlled. RN to get EXPLORATION MANAGER set up. Add toradol. Clear liquids in am. Hanna out in am. Continue IV abx for active diverticulitis/perf/contained but gross purulence. Routine post op care. 01/26/18 21:23 Objective: Vital Signs Temp Pulse Resp BP Pulse Ox 37.0 C 89 16 114/71 95 01/26/18 20:24 01/26/18 20:24 01/26/18 20:24 01/26/18 20:24 01/26/18 20:24 Microbiology 01/26/18 11:58 Gram Stain - Final Abdomen - Eswab 01/26/18 11:58 Mycobacterial Smear (RAFY) - Final Abdomen - Eswab Mycobacterial Culture - Final Laboratory Results 01/12/18 12:00 01/12/18 12:00 01/25/18 01/26/18 01/27/18 05:59 05:59 05:59 Intake Total 1230 Output Total 455 Balance 775 ICD10 Worksheet Patient Problems: Problems Problem Status Onset Abdominal pain Acute Diverticulitis Acute Diverticulitis Acute Pericolonic abscess Acute
[2018-01-26] MEDS: DOCUSATE SODIUM 100 MG CAP PO SCH (21:33)
[2018-01-26] MEDS: ASCORBIC ACID 500 MG TAB PO SCH (21:33)
[2018-01-26] MEDS: KETOROLAC 15 MG/1 ML SDV IVP SCH (23:53)
[2018-01-27] MEDS: NS W/ 20 KCl/L 1,000 ML IV SCH ×3 (00:56→19:28)
[2018-01-27] MEDS: KETOROLAC 15 MG/1 ML SDV IVP SCH ×4 (05:10→23:08)
[2018-01-27] MEDS ORDERED: cefTRIAXone 2 GM in STERILE WATER INJ 20 ML IV SCH (09:00)
[2018-01-27] MEDS ORDERED: NON-FORMULARY NEW DRUG (Ceftriaxone [Rocephin] 2 GM) IV SCH (09:00)
[2018-01-27] MEDS: ASCORBIC ACID 500 MG TAB PO SCH ×2 (09:43→20:11)
[2018-01-27] MEDS: DOCUSATE SODIUM 100 MG CAP PO SCH ×2 (09:43→20:11)
[2018-01-27] MEDS: FLUoxetine 20 MG CAP PO SCH (09:43)
--- NOTE | 2018-01-27 11:05 | ASMTCASEMG ---
Living Arrangements What is your living Answers: With Spouse arrangement? Who do you live with? Type Of Residence What kind of residence do Answers: House you live in? Discharge Plan Comments Coordination Status Comments Notes: CM spoke w/ MÓNICA Rae regarding d/c POC. Pt is a 62 y/o female admitted for diverticular abscess. Pt is currently on a CREDENTIALING ASSISTANT pump and on clears only. No therapies ordered at this time. Pt will most likely d/c independent when medically stable. CM available for changes. Plan: Independent Date Signed: 01/27/2018 11:05 AM Electronically Signed By:SHELBY Adames
--- NOTE | 2018-01-27 11:35 | PCMIDPN ---
Assessment/Plan: Assessment/Plan: * Perforated diverticulitis with felicia diverticular abscess with extension to left ovary with left tubo-ovarian abscess status post sigmoid colectomy and left salpingo oophorectomy: Operative findings reviewed with FANY Patel with area of purulence being contained. Gram stain shows no organisms with culture currently pending. Will continue ceftriaxone and metronidazole pending further culture data with adjustment of antibiotics accordingly. Anticipate 7- 10 day course of antibiotic therapy postoperatively given that abscess has now been surgically removed. 01/27/18 11:31 Subjective: Patient well known to me from recent care for complicated diverticulitis with felicia diverticular abscess with possible left ovary involvement who has been receiving ceftriaxone and metronidazole as an outpatient for approximately 5 weeks prior to surgical management. Prior radiographic findings consistent with phlegmon which was not accessible to percutaneous drainage. Patient admitted yesterday for definitive surgical therapy which included sigmoid colectomy with drainage of felicia diverticular abscess and left tubo-ovarian abscess with left salpingo oophorectomy. Patient now seen for ongoing infectious disease follow-up. Objective: Vital Signs Temp Pulse Resp BP Pulse Ox 36.6 C 77 10 L 100/62 96 01/27/18 10:00 01/27/18 10:00 01/27/18 10:00 01/27/18 10:00 01/27/18 10:00 Microbiology 01/26/18 11:58 Gram Stain - Final Abdomen - Eswab 01/26/18 11:58 Mycobacterial Smear (RAFY) - Final Abdomen - Eswab Mycobacterial Culture - Final Laboratory Results 01/27/18 05:00 01/27/18 05:00 01/26/18 01/27/18 01/28/18 05:59 05:59 05:59 Intake Total 2730 3835 Output Total 975 26 Balance 1755 3809 Ceftriaxone # 1 postoperatively Metronidazole # 1 postoperatively Gram stain 1+ white blood cells with culture pending - Physical Exam General Appearance: alert, no apparent distress EENT: No scleral icterus, No thrush Respiratory: lungs clear, No respiratory distress Cardiac/Chest: regular rate, rhythm Abdomen: tender (Mild tenderness left lower quadrant; ALVAREZ drain with serosanguineous output), No distended - Line/s RUE PICC Lines: No drainage, No erythema ICD10 Worksheet Patient Problems: Problems Problem Status Onset Abdominal pain Acute Diverticulitis Acute Diverticulitis Acute Pericolonic abscess Acute
[2018-01-27] MEDS: PIPERACILLIN/TAZO 3.375 GM/DEX 50 ML IV SCH ×3 (12:05→23:08)
--- NOTE | 2018-01-27 14:46 | POSTANESTH ---
Post Anesthetic Evaluation Cardiovascular Status: Normal, Stable Respiratory Status: Normal, Stable Level of Consciousness/Mental Status: Can Participate in Eval Pain Control: Adequate, Prn Tx Ordered Nausea/Vomiting Control: Adequate, Prn Tx Ordered Complications Possibly Related to Anesthesia: None Noted
[2018-01-27] MEDS: DIAZEPAM 5 MG TAB PO PRN (15:49)
[2018-01-27] MEDS: OXYCODONE/APAP 5/325 TAB PO PRN ×2 (17:59→23:12)
--- NOTE | 2018-01-27 20:39 | SOAPPROG ---
SOAP Progress Note Assessment/Plan: Assessment: afebrile, wound ok, vs stable, uo ok hct 31, lytes ok Plan:start clears 01/27/18 20:38 Objective: Vital Signs Temp Pulse Resp BP Pulse Ox 36.4 C 72 16 103/65 95 01/27/18 19:35 01/27/18 19:35 01/27/18 19:35 01/27/18 19:35 01/27/18 19:35 Microbiology 01/26/18 11:58 Gram Stain - Final Abdomen - Eswab 01/26/18 11:58 Mycobacterial Smear (RAFY) - Final Abdomen - Eswab Mycobacterial Culture - Final Laboratory Results 01/27/18 05:00 01/27/18 05:00 01/26/18 01/27/18 01/28/18 05:59 05:59 05:59 Intake Total 2601 9103 Output Total 453 705 Balance 1755 4380 ICD10 Worksheet Patient Problems: Problems Problem Status Onset Abdominal pain Acute Diverticulitis Acute Diverticulitis Acute Pericolonic abscess Acute
[2018-01-28] MEDS: HYDROmorphONE/DILAUDID 6 MG/30 ML PCA IV PRN ×2 (04:48→19:40)
[2018-01-28] MEDS: OXYCODONE/APAP 5/325 TAB PO PRN ×3 (05:06→14:34)
[2018-01-28] MEDS: KETOROLAC 15 MG/1 ML SDV IVP SCH ×4 (05:06→23:53)
[2018-01-28] MEDS: PIPERACILLIN/TAZO 3.375 GM/DEX 50 ML IV SCH ×4 (05:06→23:53)
[2018-01-28] MEDS: NS W/ 20 KCl/L 1,000 ML IV SCH (06:04)
[2018-01-28] MEDS: ENOXAPARIN 40 MG/0.4 ML SYR SC SCH (09:16)
[2018-01-28] MEDS: ASCORBIC ACID 500 MG TAB PO SCH ×2 (09:16→19:39)
[2018-01-28] MEDS: FLUoxetine 20 MG CAP PO SCH (09:17)
[2018-01-28] MEDS: DOCUSATE SODIUM 100 MG CAP PO SCH ×2 (09:17→19:39)
[2018-01-28] MEDS ORDERED: NS 1,000 ML IV SCH (10:00)
--- NOTE | 2018-01-28 10:52 | SOAPPROG ---
SOAP Progress Note Assessment/Plan: Assessment: 62 y/o F s/p laparoscopy and mini laparotomy for sigmoid colectomy POD #3 S: Continuing to improve. Tolerating clears well. Denies nausea. Passing flatus and BMs. Did have an episode of severe pain yesterday afternoon that resolved after pushing cost specialist button several times. Denies pain at this time. Was up oob about 3 times yesterday. O: Alert Afebrile RRR No increase WOB Abdomen: slightly distended, appropriately tender to palpation, incision sites are cdi, normoactive bowel sounds. Plan: Pt is tolerating clears, I would like to see her transition to oral pain meds and stop using cost specialist. She agrees. She will try to rely on oral pain meds today. Possibly d/c cost specialist tomorrow. Advance diet as tolerated. Continue to get up and walk as much as possible. 01/28/18 10:44 Objective: Vital Signs Temp Pulse Resp BP Pulse Ox 36.8 C 67 12 114/67 92 01/28/18 10:00 01/28/18 10:00 01/28/18 10:00 01/28/18 10:00 01/28/18 10:00 Microbiology 01/26/18 11:58 Gram Stain - Final Abdomen - Eswab 01/26/18 11:58 Mycobacterial Smear (RAFY) - Final Abdomen - Eswab Mycobacterial Culture - Final Laboratory Results 01/27/18 05:00 01/27/18 05:00 01/27/18 01/28/18 01/29/18 05:59 05:59 05:59 Intake Total 5224 6335 5093 Output Total 028 2801 800 Balance 1753 6389 429 ICD10 Worksheet Patient Problems: Problems Problem Status Onset Abdominal pain Acute Diverticulitis Acute Diverticulitis Acute Pericolonic abscess Acute
--- NOTE | 2018-01-28 11:43 | ASMTCMCOM ---
CM Note CM Note Notes: CM spoke w/ Kyra RN regarding d/c POC. Pt is advancing her diet as tolerated. Pt remains on a OIL BURNER REPAIRER pump. The plan remains the same. Pt will d/c without any needs when medically stable. CM available for changes. Plan: Independent Date Signed: 01/28/2018 11:43 AM Electronically Signed By:SHELBY Adames
--- NOTE | 2018-01-28 12:41 | PCMIDPN ---
Assessment/Plan: Assessment: Diverticulitis with development of intrapelvic abscess and ovarian abscess. Status post sigmoid colectomy and oophorectomy. On Zosyn secondary to enterococcus isolation. Now growing yeast from operative culture. Will expand with the addition of micafungin. Will follow her clinical course and operative cultures going forward. Overall clinically she is doing well. Plan: 1. Continue IV Zosyn. 2. Start IV micafungin 100 mg daily. 3. Follow culture data and clinical improvement. 01/28/18 12:39 Subjective: Patient is resting in her hospital bed. Her is in the room. She states she is feeling better. No new complaints. Her abdominal pain postoperatively from yesterday has decreased in localized over to the left lower quadrant. No fevers or chills. Objective: Zosyn # 1 Vital Signs Temp Pulse Resp BP Pulse Ox 36.7 C 71 16 129/82 H 91 L 01/28/18 11:34 01/28/18 11:34 01/28/18 11:34 01/28/18 11:34 01/28/18 11:34 Microbiology 01/26/18 11:58 Gram Stain - Final Abdomen - Eswab 01/26/18 11:58 Mycobacterial Smear (RAFY) - Final Abdomen - Eswab Mycobacterial Culture - Final Laboratory Results 01/27/18 05:00 01/27/18 05:00 01/27/18 01/28/18 01/29/18 05:59 05:59 05:59 Intake Total 2730 6335 5093 Output Total 975 1605 1355 Balance 1755 4730 3738 - Physical Exam General Appearance: WD/WN, alert, no apparent distress, non-toxic Respiratory: lungs clear, normal breath sounds, No respiratory distress Cardiac/Chest: regular rate, rhythm, No tachycardia Abdomen: soft, No non-tender, No mass Skin: normal color, warm/dry, No rash Neuro/Psych: alert, normal mood/affect, oriented x 3 ICD10 Worksheet Patient Problems: Problems Problem Status Onset Abdominal pain Acute Diverticulitis Acute Diverticulitis Acute Pericolonic abscess Acute
[2018-01-28] MEDS: MICAFUNGIN NA 100 MG in NS 100 ML IV SCH (14:34)
[2018-01-29] MEDS: KETOROLAC 15 MG/1 ML SDV IVP SCH ×4 (05:18→23:22)
[2018-01-29] MEDS: PIPERACILLIN/TAZO 3.375 GM/DEX 50 ML IV SCH ×4 (05:18→23:22)
[2018-01-29] MEDS: DOCUSATE SODIUM 100 MG CAP PO SCH ×3 (08:42→19:50)
[2018-01-29] MEDS: ASCORBIC ACID 500 MG TAB PO SCH ×2 (08:42→19:48)
[2018-01-29] MEDS: ENOXAPARIN 40 MG/0.4 ML SYR SC SCH (08:43)
[2018-01-29] MEDS: FLUoxetine 20 MG CAP PO SCH (08:43)
[2018-01-29] MEDS: MICAFUNGIN NA 100 MG in NS 100 ML IV SCH (08:45)
[2018-01-29] MEDS: OXYCODONE/APAP 5/325 TAB PO PRN ×3 (10:17→19:48)
--- NOTE | 2018-01-29 10:41 | PCMIDPN ---
Assessment/Plan: 1. Diverticular abscess with extension to left ovary status post sigmoid colectomy/oophorectomy: Continue Zosyn and Micafungin as is for now, pending susceptibility of the Enterococcus. Have also ordered susceptibility testing on the Sandy glabrata , which is typically resistant to the azoles. Starting to feel better, but pain control still a mild issue. Subjective: Just converted to p.o. Pain medication. Concerned about that. Still having some abdominal discomfort, but overall feels better, as she is starting to eat now. Objective: Zosyn 3.375 g IV q.6 hours day 2 Micafungin 100 mg IV daily day 2 T-max 37.3 degrees Vital Signs Temp Pulse Resp BP Pulse Ox 37.1 C 75 12 131/68 H 95 01/29/18 10:00 01/29/18 10:00 01/29/18 10:00 01/29/18 10:00 01/29/18 10:00 Microbiology 01/26/18 11:58 Gram Stain - Final Abdomen - Eswab 01/26/18 11:58 Mycobacterial Smear (RAFY) - Final Abdomen - Eswab Mycobacterial Culture - Final Laboratory Results 01/27/18 05:00 01/27/18 05:00 01/28/18 01/29/18 01/30/18 05:59 05:59 05:59 Intake Total 6335 5967 500 Output Total 1605 5355 690 Balance 4730 612 -190 Abdominal cultures with rare Enterococcus faecalis, susceptibilities pending, and 1+ Sandy glabrata - Physical Exam General Appearance: alert, no apparent distress EENT: pharynx normal, No thrush Respiratory: lungs clear Cardiac/Chest: systolic murmur (09/04) Extremities: other (PICC line right upper extremity looks fine) Abdomen: other (ALVAREZ drain in place have full of serosanguineous fluid, abdomen still quite tender, particularly left lower quadrant no distension.) Skin: No rash ICD10 Worksheet Patient Problems: Problems Problem Status Onset Abdominal pain Acute Diverticulitis Acute Diverticulitis Acute Pericolonic abscess Acute
--- NOTE | 2018-01-29 10:42 | SOAPPROG ---
SOAP Progress Note Assessment/Plan: Assessment: 62yo F s/p colectomy - VSS, HDs - working on weaning SPECIAL EDUCATION COORDINATOR, discussed premedicating wth percocet prior to activity - Cx growing enterococcus and yeast, ID following appreciate assistance - tolerating diet, cont reg - needs to work on ambulating and weaning SPECIAL EDUCATION COORDINATOR. Plan: 01/29/18 10:40 Subjective: feels well, working on weaning SPECIAL EDUCATION COORDINATOR Objective: Vital Signs Temp Pulse Resp BP Pulse Ox 37.1 C 75 12 131/68 H 95 01/29/18 10:00 01/29/18 10:00 01/29/18 10:00 01/29/18 10:00 01/29/18 10:00 Microbiology 01/26/18 11:58 Gram Stain - Final Abdomen - Eswab 01/26/18 11:58 Mycobacterial Smear (RAFY) - Final Abdomen - Eswab Mycobacterial Culture - Final Laboratory Results 01/27/18 05:00 01/27/18 05:00 01/28/18 01/29/18 01/30/18 05:59 05:59 05:59 Intake Total 6335 5967 500 Output Total 0935 5355 690 Balance 4730 612 -190 ICD10 Worksheet Patient Problems: Problems Problem Status Onset Abdominal pain Acute Diverticulitis Acute Diverticulitis Acute Pericolonic abscess Acute
[2018-01-30] MEDS: OXYCODONE/APAP 5/325 TAB PO PRN ×3 (00:13→07:47)
[2018-01-30] MEDS: HYDROmorphONE/DILAUDID 1 MG/ML INJ IVP PRN ×2 (01:43→08:18)
[2018-01-30] MEDS: PIPERACILLIN/TAZO 3.375 GM/DEX 50 ML IV SCH ×2 (05:43→11:57)
[2018-01-30] MEDS: KETOROLAC 15 MG/1 ML SDV IVP SCH ×3 (05:43→17:48)
[2018-01-30] MEDS: ASCORBIC ACID 500 MG TAB PO SCH ×2 (07:37→20:17)
[2018-01-30] MEDS: DOCUSATE SODIUM 100 MG CAP PO SCH ×2 (07:37→20:17)
[2018-01-30] MEDS: FLUoxetine 20 MG CAP PO SCH (07:38)
[2018-01-30] MEDS: ENOXAPARIN 40 MG/0.4 ML SYR SC SCH (07:40)
[2018-01-30] MEDS: MICAFUNGIN NA 100 MG in NS 100 ML IV SCH (08:51)
[2018-01-30] MEDS ORDERED: ACETAMINOPHEN 325 MG TAB PO PRN (10:23)
[2018-01-30] MEDS: oxyCODONE IR 5 MG TAB PO PRN ×3 (11:54→20:17)
--- NOTE | 2018-01-30 12:12 | PCMIDPN ---
Assessment/Plan: 1. Diverticular abscess with extension to left ovary status post sigmoid colectomy/oophorectomy: Operative cultures are growing only enterococcus susceptible to ampicillin, and Sandy glabrata, to which sensitivities are pending. This Sandy species tends to be resistant to the azoles. Will change Zosyn to Unasyn, and continue Micafungin. Pain control is still an issue. Change in antibiotics explained to the patient, who expressed understanding. 01/30/18 12:09 Subjective: Still having some problems with pain and is requiring intermittent Dilaudid. Having normal bowel movements now. P.o. Intake increasing slowly. Drain is still putting out a fair amount. Objective: Vital Signs Zosyn 3.375 g IV q.6 hours day 3 Micafungin 100 mg IV daily day 3 No fevers Temp Pulse Resp BP Pulse Ox 36.8 C 62 18 142/87 H 96 01/30/18 11:32 01/30/18 11:32 01/30/18 11:32 01/30/18 11:32 01/30/18 11:32 Microbiology 01/26/18 11:58 Gram Stain - Final Abdomen - Eswab Laboratory Results 01/27/18 05:00 01/27/18 05:00 01/29/18 01/30/18 01/31/18 05:59 05:59 05:59 Intake Total 5967 1550 Output Total 5737 3265 40 Balance 612 -1715 -40 Operative cultures with Enterococcus faecalis, susceptible to ampicillin, and Sandy glabrata, susceptibilities have been sent out - Physical Exam General Appearance: other (Looks tired, nontoxic) EENT: pharynx normal, No thrush Respiratory: lungs clear Cardiac/Chest: regular rate, rhythm Extremities: other (PICC line right upper extremity looks fine) Abdomen: other (ALVAREZ drain with dishwater colored fluid, minimal, abdomen soft, trocar incisions look okay) Skin: No rash ICD10 Worksheet Patient Problems: Problems Problem Status Onset Abdominal pain Acute Diverticulitis Acute Diverticulitis Acute Pericolonic abscess Acute
--- NOTE | 2018-01-30 13:17 | ASMTCMCOM ---
CM Note CM Note Notes: ID saw patient today and adjusted her antibiotic regimen. Still uncertain if she will need IV abx upon discharge. Her main issue right now is pain control; ambulation is being encouraged. Case Management will follow for discharge planning. Date Signed: 01/30/2018 01:16 PM Electronically Signed By:Taylor Rodriguez RN
--- NOTE | 2018-01-30 14:27 | SOAPPROG ---
SOAP Progress Note Assessment/Plan: Assessment: 62yo F s/p colectomy - VSS, HDs - EMERGENCY DEPARTMENT NURSE was weaned and discontinued yesterday. Patient had a good afternoon evening, early this morning had increased pain and a lot of anxiety secondary to the fact that the EMERGENCY DEPARTMENT NURSE was unavailable. She does have IV push Dilaudid as needed for breakthrough pain and was counseled on using this today in lieu of the EMERGENCY DEPARTMENT NURSE. Pain appears to be better controlled now that we have gotten on top of it. Will continue to follow - Cx growing enterococcus and yeast, ID following appreciate assistance, antibiotics changed once again today, susceptibilities to the Sandy still pending. - tolerating diet, cont reg. Having bowel function - pain control issues which have been addressed and are resolving, Infectious Disease tailoring antibiotics as appropriate. Plan: 01/29/18 10:40 01/30/18 14:25 Subjective: Patient very tearful today, stating pain is poorly controlled. Objective: Vital Signs Temp Pulse Resp BP Pulse Ox 36.8 C 62 18 142/87 H 96 01/30/18 11:32 01/30/18 11:32 01/30/18 11:32 01/30/18 11:32 01/30/18 11:32 Microbiology 01/26/18 11:58 Gram Stain - Final Abdomen - Eswab Laboratory Results 01/27/18 05:00 01/27/18 05:00 01/29/18 01/30/18 01/31/18 05:59 05:59 05:59 Intake Total 5967 1550 Output Total 5355 3265 40 Balance 612 -1715 -40 ICD10 Worksheet Patient Problems: Problems Problem Status Onset Abdominal pain Acute Diverticulitis Acute Diverticulitis Acute Pericolonic abscess Acute
[2018-01-30] MEDS: AMPICILLIN/SULBACTAM 3 GM in NS 100 ML IV SCH (17:48)
[2018-01-31] MEDS: KETOROLAC 15 MG/1 ML SDV IVP SCH ×4 (00:07→17:35)
[2018-01-31] MEDS: AMPICILLIN/SULBACTAM 3 GM in NS 100 ML IV SCH ×4 (00:07→17:36)
[2018-01-31] MEDS: oxyCODONE IR 5 MG TAB PO PRN ×6 (00:17→21:22)
[2018-01-31] MEDS: MICAFUNGIN NA 100 MG in NS 100 ML IV SCH (08:54)
[2018-01-31] MEDS: ASCORBIC ACID 500 MG TAB PO SCH ×2 (08:55→20:02)
[2018-01-31] MEDS: DOCUSATE SODIUM 100 MG CAP PO SCH ×2 (08:56→20:02)
[2018-01-31] MEDS: FLUoxetine 20 MG CAP PO SCH (08:56)
[2018-01-31] MEDS: ENOXAPARIN 40 MG/0.4 ML SYR SC SCH (08:56)
--- NOTE | 2018-01-31 09:53 | SOAPPROG ---
SOAP Progress Note Assessment/Plan: Assessment/Plan: 62 Y F s/p lap assisted sigmoid colectomy with L salpingoopherectomy for perforated diverticulitis with L adnexal involvement. 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 Patient seems to be doing much better with pain control now. Ileus resolved and tolerating diet. Plan to d/c Vincent drain prior to d/c from hospital. Await ID antibiotic plan. Patient could be discharged once antibiotic plans and arrangements in place. Dispo: pending above. S: smiling today. has walked a little bit. pain is better. O: alert, nad ctab rrr abd soft inc cdi drain serosanguinous 01/31/18 09:51 Objective: Vital Signs Temp Pulse Resp BP Pulse Ox 36.8 C 69 16 126/74 H 93 01/31/18 07:45 01/31/18 07:45 01/31/18 07:45 01/31/18 07:45 01/31/18 07:45 Microbiology 01/26/18 11:58 Gram Stain - Final Abdomen - Eswab 01/26/18 11:58 Mycobacterial Smear (RAFY) - Final Abdomen - Eswab Mycobacterial Culture - Final Laboratory Results 01/27/18 05:00 01/27/18 05:00 01/30/18 01/31/18 02/01/18 05:59 05:59 05:59 Intake Total 1550 500 Output Total 3265 410 Balance -1715 90 ICD10 Worksheet Patient Problems: Problems Problem Status Onset Abdominal pain Acute Diverticulitis Acute Diverticulitis Acute Pericolonic abscess Acute
[2018-01-31] MEDS: HYDROmorphONE/DILAUDID 1 MG/ML INJ IVP PRN ×2 (11:05→15:21)
[2018-01-31 11:06] LABS: PLATELET COUNT 280 10^3/uL (150-400)
--- NOTE | 2018-01-31 13:15 | PCMIDPN ---
Assessment/Plan: Assessment/Plan: * Perforated diverticulitis with felicia diverticular abscess with extension to left ovary with left tubo-ovarian abscess status post sigmoid colectomy and left salpingo oophorectomy: Cultures with growth of enterococcus faecalis and Sandy glabrata. Now on Unasyn and micafungin based on these culture findings. Likely will be discharged home tomorrow once antibiotic arrangements in place. Plan Zosyn by continuous infusion (Unasyn not available by continuous infusion) and micafungin IV daily to complete 10 total days of therapy (# 4/10 today). Have asked case management to evaluate coverage for home outpatient IV antibiotic therapy as continuous infusion is not feasible on the [address] [place] [address]. 01/31/18 13:12 Subjective: Patient feels significantly improved. 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 Mild residual left lower quadrant pain. Some foods do not taste good currently. Objective: Vital Signs Temp Pulse Resp BP Pulse Ox 36.8 C 69 16 126/74 H 93 01/31/18 07:45 01/31/18 07:45 01/31/18 07:45 01/31/18 07:45 01/31/18 07:45 Microbiology 01/26/18 11:58 Gram Stain - Final Abdomen - Eswab 01/26/18 11:58 Mycobacterial Smear (RAFY) - Final Abdomen - Eswab Mycobacterial Culture - Final Laboratory Results 01/31/18 11:00 01/31/18 11:00 01/30/18 01/31/18 02/01/18 05:59 05:59 05:59 Intake Total 1550 500 Output Total 3265 410 175 Balance -1715 90 -175 Unasyn # 1, antibiotics # 4 Micafungin # 4 - Physical Exam General Appearance: alert, no apparent distress EENT: No scleral icterus, No thrush Respiratory: lungs clear, No respiratory distress Cardiac/Chest: regular rate, rhythm Abdomen: tender (Mild left lower quadrant tenderness) - Line/s RUE PICC Lines: No drainage, No erythema ICD10 Worksheet Patient Problems: Problems Problem Status Onset Abdominal pain Acute Diverticulitis Acute Diverticulitis Acute Pericolonic abscess Acute
[2018-01-31] MEDS: DIAZEPAM 5 MG TAB PO PRN (13:42)
--- NOTE | 2018-01-31 15:48 | ASMTCMCOM ---
CM Note CM Note Notes: CM spoke to Dr. Hernandez regarding d/c POC. Pt will most likely d/c tomorrow. Pt will require to ivabx. CM met w/ pt for dispo planning. Referral made to [facility] for home infusion. [facility] is able to accept pt. to follow. Plan: BEAU; RN with [facility] Date Signed: 01/31/2018 03:47 PM Electronically Signed By:SHELBY Adames
--- NOTE | 2018-01-31 18:17 | PDIAF ---
- Diagnosis Diagnosis: Diverticular abscess Code Status: Full Code - Medication Management Discharge Medications: Medications to Continue on Transfer Diazepam [Valium 5 MG (*)] 5 mg PO DAILY PRN 11/26/16 [Last Taken 01/25/18 23:30 ] Ascorbic Acid [Vitamin C 500 mg (*)] 500 mg PO BID 12/14/17 [Last Taken 01/24/18 ] Calcium Carbonate/Vitamin D3 [Calcium 500 + Vit D Caplet] 1 each PO BID [Last Taken 01/24/18] Cholecalciferol Vit D3 [Vitamin D3 2000 units tab (OTC)] 2,000 units PO DAILY [Last Taken 01/25/18 09:00] Multivitamins [Multivitamin (*)] 1 each PO DAILY 12/14/17 [Last Taken 01/24/18] [place]-3 Fatty Acids [Fish Oil 1000 mg (*)] 1,000 mg PO TID 12/14/17 [Last Taken 01/24/18] cefTRIAXone [Rocephin] 2 gm IV DAILY vial 12/21/17 [Last Taken 01/25/18] FLUoxetine [Prozac 20 MG (*)] 20 mg PO DAILY 01/25/18 [Last Taken 01/25/18 09:00 ] Propylene Glycol/Peg 400/Pf [Systane 0.3-0.4% Eye Drops] 1 each OP DAILY PRN [Last Taken 01/24/18] metroNIDAZOLE [Flagyl 500 mg (*)] 1,000 mg PO DAILY 01/25/18 [Last Taken 09:00] Longterm Antibiotics: Zosyn 13.5 g by continuous infusion Q 24 hr, micafungin 1 g IV Q 24 hr Nail Puller Antibiotic Stop Date: 02/06/18 Discharge Medications: Refer to the Discharge Home Medication list for PRN reason. PICC Care - Routine: Yes - Orders Services needed: Home Chcf Care Face to Face: I certify that this patient was under my care and that I had the required [id number] encounter meeting the encounter requirements on the discharge day. My findings support the fact that the patient is homebound as defined in Home Care Face to Face Continued: CMS Chapter 7 Medicare Benefits Manual 30.1.1 , The condition of the patient is such that there exists a normal inability to leave home and consequently, leaving home would require a considerable and taxing effort. - Follow Up Care Current Providers and Referrals: Imer Jasso MD [Primary Care Provider] -
[2018-02-01] MEDS: HYDROmorphONE/DILAUDID 1 MG/ML INJ IVP PRN
[2018-02-01] MEDS: KETOROLAC 15 MG/1 ML SDV IVP SCH (00:29)
[2018-02-01] MEDS: AMPICILLIN/SULBACTAM 3 GM in NS 100 ML IV SCH ×3 (00:42→11:38)
[2018-02-01] MEDS: oxyCODONE IR 5 MG TAB PO PRN ×3 (05:37→13:37)
[2018-02-01] MEDS: ASCORBIC ACID 500 MG TAB PO SCH (08:22)
[2018-02-01] MEDS: DOCUSATE SODIUM 100 MG CAP PO SCH (08:22)
[2018-02-01] MEDS: FLUoxetine 20 MG CAP PO SCH (08:22)
[2018-02-01 08:40] VITALS: BP 102/90
[2018-02-01] MEDS: MICAFUNGIN NA 100 MG in NS 100 ML IV SCH (10:02)
[2018-02-01] MEDS: ENOXAPARIN 40 MG/0.4 ML SYR SC SCH (10:11)
--- NOTE | 2018-02-01 11:51 | SOAPPROG ---
SOAP Progress Note Assessment/Plan: Assessment/Plan: 62 Y F s/p lap assisted sigmoid colectomy with L salpingoopherectomy for perforated diverticulitis with L adnexal involvement. Also seen by Dr. Govea this am. Appreciate ID input and care. D/c ALVAREZ drain. D/c to home today with outpatient f/u c surgery and ID. Dispo: home with home care and PICC. S: ready to go home. pain controlled. still some llq discomfort, getting better. walking better. O: alert, nad ctab rrr abd soft inc cdi drain serosanguinous 02/01/18 11:50 Objective: Vital Signs Temp Pulse Resp BP Pulse Ox 36.9 C 94 18 102/90 H 93 02/01/18 08:00 02/01/18 08:00 02/01/18 08:00 02/01/18 08:00 02/01/18 08:00 Microbiology 01/26/18 11:58 Gram Stain - Final Abdomen - Eswab 01/26/18 11:58 Mycobacterial Smear (RAFY) - Final Abdomen - Eswab Mycobacterial Culture - Final Laboratory Results 01/31/18 11:00 01/31/18 11:00 01/31/18 02/01/18 02/02/18 05:59 05:59 05:59 Intake Total 500 240 Output Total 410 1358 Balance 90 -1118 ICD10 Worksheet Patient Problems: Problems Problem Status Onset Abdominal pain Acute Diverticulitis Acute Diverticulitis Acute Pericolonic abscess Acute
--- NOTE | 2018-02-01 12:00 | PDIAF ---
- Diagnosis Diagnosis: Diverticular abscess, s/p colon resection and L salpingoopherectomy Code Status: Full Code - Medication Management Discharge Medications: Medications to Continue on Transfer Diazepam [Valium 5 MG (*)] 5 mg PO DAILY PRN 11/26/16 [Last Taken 01/25/18 23:30 ] Ascorbic Acid [Vitamin C 500 mg (*)] 500 mg PO BID 12/14/17 [Last Taken 01/24/18 ] Calcium Carbonate/Vitamin D3 [Calcium 500 + Vit D Caplet] 1 each PO BID [Last Taken 01/24/18] Cholecalciferol Vit D3 [Vitamin D3 2000 units tab (OTC)] 2,000 units PO DAILY [Last Taken 01/25/18 09:00] Multivitamins [Multivitamin (*)] 1 each PO DAILY 12/14/17 [Last Taken 01/24/18] [place]-3 Fatty Acids [Fish Oil 1000 mg (*)] 1,000 mg PO TID 12/14/17 [Last Taken 01/24/18] FLUoxetine [Prozac 20 MG (*)] 20 mg PO DAILY 01/25/18 [Last Taken 01/25/18 09:00 ] Propylene Glycol/Peg 400/Pf [Systane 0.3-0.4% Eye Drops] 1 each OP DAILY PRN [Last Taken 01/24/18] Ampicillin/Sulbactam [Unasyn] 3 gm IV Q6 vial 02/01/18 [Last Taken Unknown] Ibuprofen [Motrin (*)] 600 mg PO Q6H #50 tab 02/01/18 [Last Taken Unknown] Micafungin Na [Mycamine 100Mg Vial] 100 mg IV DAILY vial 02/01/18 [Last Taken Unknown] oxyCODONE IR [Oxycodone Ir (*)] 5 - 10 mg PO Q4HRS PRN #30 tab 02/01/18 [Last Taken Unknown] Lens Generating Machine Tender Antibiotics: Zosyn 13.5 g by continuous infusion Q 24 hr, micafungin 1 g IV Q 24 hr Lens Generating Machine Tender Antibiotic Stop Date: 02/06/18 Discharge Medications: Refer to the Discharge Home Medication list for PRN reason. PICC Care - Routine: Yes - Orders Services needed: Home Care, Registered Nurse Home Care Face to Face: I certify that this patient was under my care and that I had the required [id number] encounter meeting the encounter requirements on the discharge day. My findings support the fact that the patient is homebound as defined in Home Care Face to Face Continued: [facility] Chapter 7 Medicare Benefits Manual 30.1.1 , The condition of the patient is such that there exists a normal inability to leave home and consequently, leaving home would require a considerable and taxing effort. Diet Recommendation: no restrictions on diet Diet Texture: Regular Texture Diet Wound Care Instructions: No lifting over 15lbs. Ok to shower. Avoid baths/ pools. You will need to replace a dressing over your drain site every day until it is healed. You may use gauze and tape or just a band aid depending on how much drainage you have. Activity/Weight Bearing Restrictions: No lifting over 15lbs. Ok to shower. Avoid baths/pools. You will need to replace a dressing over your drain site every day until it is healed. You may use gauze and tape or just a band aid depending on how much drainage you have. Additional Instructions: No lifting over 15lbs. Ok to shower. Avoid baths/pools. You will need to replace a dressing over your drain site every day until it is healed. You may use gauze and tape or just a band aid depending on how much drainage you have. - Follow Up Care Current Providers and Referrals: Imer Jasso MD [Primary Care Provider] - Ion Hernandez MD [Medical Doctor] - (per his instructions) Demond Govea MD [Medical Doctor] - follow up in 10 days
--- NOTE | 2018-02-01 12:17 | ASMTLACE ---
LACE Length of stay for Answers: 4-6 days current admission Acuity / Level of Answers: Yes Care: Did the patient have an inpatient admission? # of Emergency department Answers: 3-4 visits in the last 6 months Social determinants Answers: Mental health diagnosis (anxiety, depression, pers onality disorders, etc.) Score: 13 Date Signed: 02/01/2018 12:16 PM Electronically Signed By:SHELBY Adames
--- NOTE | 2018-02-01 15:01 | PCMIDPN ---
Assessment/Plan: Assessment/Plan: * Perforated diverticulitis with felicia diverticular abscess with extension to left ovary with left tubo-ovarian abscess status post sigmoid colectomy and left salpingo oophorectomy: Cultures with growth of enterococcus faecalis and Sandy glabrata. Continued clinical improvement postoperatively with decreasing abdominal pain. Will complete 5 additional days of Zosyn by continuous infusion and micafungin daily for 10 days total therapy postoperatively. Will arrange for follow-up with me in my office next week for ongoing care. Advised to notify me for fever, chills, night sweats, rash, nausea, vomiting, diarrhea or recurrent abdominal pain. 02/01/18 15:00 Subjective: Patient feels significantly improved. Anxious to have ALVAREZ drain removed today. Objective: Vital Signs Temp Pulse Resp BP Pulse Ox 36.9 C 94 18 102/90 H 93 02/01/18 08:00 02/01/18 08:00 02/01/18 08:00 02/01/18 08:00 02/01/18 08:00 Microbiology 01/26/18 11:58 Gram Stain - Final Abdomen - Eswab 01/26/18 11:58 Mycobacterial Smear (RAFY) - Final Abdomen - Eswab Mycobacterial Culture - Final Laboratory Results 01/31/18 11:00 01/31/18 11:00 01/31/18 02/01/18 02/02/18 05:59 05:59 05:59 Intake Total 500 240 Output Total 410 1358 Balance 90 -1118 Unasyn # 2, antibiotics # 5 Micafungin # 5 - Physical Exam General Appearance: alert, no apparent distress EENT: No scleral icterus, No thrush Respiratory: lungs clear, No respiratory distress Cardiac/Chest: regular rate, rhythm Abdomen: tender (Mild tenderness in left lower quadrant), No distended - Line/s RUE PICC Lines: No drainage, No erythema ICD10 Worksheet Patient Problems: Problems Problem Status Onset Abdominal pain Acute Diverticulitis Acute Diverticulitis Acute Pericolonic abscess Acute
--- NOTE | 2018-02-02 15:51 | ASDISCHSUM ---
Discharge Information Plan Status:Home with Home Health Medically Cleared to Leave:02/01/2018 Discharge Date:02/01/2018 02:21 PM D/C Disposition: ADT D/C Disposition:Home, Routine, Self-Care Projected Discharge Date:02/01/2018 11:00 AM Transportation at D/C: Discharge Delay Reason: Follow-Up Date:02/01/2018 11:00 AM Discharge Slot: Final Diagnosis: Placement Information Referral Type:Home Infusion Referral ID:[id number] Provider Name:[facility] Address 1:[address] Address 2: City:[place] Selection Factors: State:[place] Referral Type:*Home Health Care Services Referral ID:[id number] Provider Name:[facility] Address 1:[address] Address 2: City:[place] Selection Factors: State:[place] Patient Contact Information Contact Name:SAUL Relationship: Address:[address] City:[place] Alternate Phone: [facility]/Zip Code:[place] [address] Email: Financial Information Financial Class:HMO and PPO Plans Primary Plan Desc:HMO [place] [employer] Primary Plan Number:[id number] Secondary Plan Desc: Secondary Plan Number: Assessment Information LACE LACE Length of stay for Answers: 4-6 days current admission Acuity / Level of Answers: Yes Care: Did the patient have an inpatient admission? # of Emergency department Answers: 3-4 visits in the last 6 months Social determinants Answers: Mental health diagnosis (anxiety, depression, pers onality disorders, etc.) Score: 13 Date Signed: 02/01/2018 12:16 PM Electronically Signed By:SHELBY Adames [facility] Initial CM Assessment Living Arrangements What is your living Answers: With Spouse arrangement? Who do you live with? Type Of Residence What kind of residence do Answers: House you live in? Discharge Plan Comments Coordination Status Comments Notes: CM spoke w/ Kyra RN regarding d/c POC. Pt is a 62 y/o female admitted for diverticular abscess. Pt is currently on a AUTHOR pump and on clears only. No therapies ordered at this time. Pt will most likely d/c independent when medically stable. CM available for changes. Plan: Independent Date Signed: 01/27/2018 11:05 AM Electronically Signed By:SHELBY Adames [facility] CM Progress Note CM Note CM Note Notes: CM spoke w/ MÓNICA Rae regarding d/c POC. Pt is advancing her diet as tolerated. Pt remains on a AUTHOR pump. The plan remains the same. Pt will d/c without any needs when medically stable. CM available for changes. Plan: Independent Date Signed: 01/28/2018 11:43 AM Electronically Signed By:SHELBY Adames [facility] CM Progress Note CM Note CM Note Notes: ID saw patient today and adjusted her antibiotic regimen. Still uncertain if she will need IV abx upon discharge. Her main issue right now is pain control; ambulation is being encouraged. Case Management will follow for discharge planning. Date Signed: 01/30/2018 01:16 PM Electronically Signed By:Taylor Rodriguez RN [facility] Progress Note CM Note CM Note Notes: CM spoke to Dr. Hernandez regarding d/c POC. Pt will most likely d/c tomorrow. Pt will require to ivabx. CM met w/ pt for dispo planning. Referral made to [facility] for home infusion. [facility] is able to accept. Funmi from [facility] met w/ pt today. [facility] is able to accept pt. to follow. Plan: [facility]; RN with [facility] Date Signed: 01/31/2018 03:47 PM Electronically Signed By:SHELBY Adames Case Management Discharge Plan Note Case Management Discharge Discharge Order Complete? Answers: Yes Patient to Obtain Answers: via Family Medications Transportation Arranged Answers: Family/Friends EMTALA Complete Answers: No Case Management Transport Answers: No Form Complete Faxed Final Orders Answers: Yes Agency/Facility Transfer Answers: Yes Report Printed & Faxed to Receiving Agency Family Notified Answers: No Discharge Comments Notes: Pt is being discharged today. CM spoke w/ FANY Patel, Dr. Hernandez and Meme, RN regarding d/c POC. CM notified BEAU of the d/c. BETH provided MÓNICA Valentine w/ phone number to give report. BETH notified Funmi at [facility]. DC orders sent to [facility]. BETH available for changes. Plan: MÓNICA CHAIDEZ with erita Date Signed: 02/01/2018 12:16 PM Electronically Signed By:SHELBY Adames Intervention Information
--- NOTE | 2018-02-06 00:04 | GOP ---
[f rep st] OPERATIVE REPORT DATE OF OPERATION: 01/26/2018 SURGEON: Demond Govea MD PLUG PASTER: FANY Patel ANESTHESIOLOGIST: Dr. Ying PREOPERATIVE DIAGNOSIS: Diverticulitis with abscess. POSTOPERATIVE DIAGNOSIS: Diverticulitis with abscess. PROCEDURE PERFORMED: Laparoscopic assisted sigmoid colectomy with a left salpingo-oophorectomy and d rainage of abscess. FINDINGS: The patient was found to have a small abscess involving the left ovary and the lateral wal l of the sigmoid colon. This appeared to be arising from perforated diverticulitis, but it involved the tube and ovary on the left side as well, making it difficult to be sure where the abscess started . The sigmoid had significant diverticular change. ESTIMATED BLOOD LOSS: Less than 50 cc. DESCRIPTION OF PROCEDURE: Patient taken to the operating room, where she received satisfactory gener al endotracheal anesthesia by Dr. Ying. She was placed in low stirrups in the supine position, pre pped and draped in usual sterile fashion. A periumbilical incision was made. A Veress needle insert ed. Pneumoperitoneum was established. A trocar was introduced. Laparoscope introduced. Good visua lization was obtained. Three other trocars were placed in the lower abdomen under direct vision. Th e sigmoid colon was mobilized by dividing the lateral peritoneal attachments. The uterus was identif ied and spared from injury. The colon was tightly fixed to the left tube and ovary. The distal sigm oid colon was exposed by dividing the most lateral peritoneal reflections. The mesocolon was divided with the Harmonic scalpel with care to avoid injury to the ureter. The colon was then fro m the ovary and exposing a small abscess, which was suctioned clear and cultured. After adequate mob ilization of the sigmoid, the distal sigmoid was divided with endo-PUNEET stapler just above the periton eal reflection. The left tube and ovary were carefully mobilized away from the ureter and the other structures in the lateral abdominal wall. This was done with the Harmonic scalpel. Dissection exten ded back to the origin of the left tube, which was divided with the Harmonic scalpel. A short suprap ubic incision was then made and carried down to the fascia which was incised. The rectus muscles wer e in the midline. The peritoneum was opened. A wound protector was placed with the Rogers wound protector. The tube and ovary were brought out, sent to Pathology. The colon was brought out through this opening. Splenic flexure had been mobilized prior to this delivering the colon and all owed for adequate mobilization. The colon was then divided above the diverticular disease with a pur sestring device. The specimen was removed and sent to Pathology. A 29 EEA was selected. The cap of the EEA was placed in the proximal segment and secured with the pursestring suture, was dropped back into the abdomen, and the incision was temporarily closed and pneumoperitoneum was reestablished. T he EEA was brought in through the rectum and passed up to the suture line. The trocar portion of the EEA was brought out adjacent to the suture line, and then the 2 instruments were connected and close d with care to avoid any twisting of the proximal colon. Instrument was fired and good anastomotic r ings were present. We tested the anastomosis under water and appeared to be airtight. The wound was then irrigated. Hemostasis was assured. Trocars removed under direct vision. The suprapubic site was closed with 0 Vicryl for the peritoneum and a running #1 PDS for the fascia, 3-0 Vicryl for the s ubcu, and a 4-0 Monocryl subcuticular stitch for the skin. Trocar sites were closed with 4-0 Monocry l and 0 Vicryl for the fascia. All wounds were infiltrated with 0.5% Marcaine. She tolerated the pr ocedure quite well. It should be noted that a 15 round silicone ALVAREZ drain was brought out through one of the trocar sites and secured to the skin with a silk suture. It was placed in the pelvis adjacen t to the abscess site. She tolerated the procedure well. There were no complications. /[id number]/MODL
== END 2018-02-01 14:21 | disposition home or self-care (01) | DRG 330 ==
LOC: F3N 01-26 08:34 → F3E 01-26 15:06
PROVIDERS: ADMIT Surgery; ATTEND Surgery
PROC: 0UT14ZZ Resection of Left Ovary, Percutaneous Endoscopic Approach (ICD-10-PCS; principal; 2018-01-26 10:00)
PROC: 0D9N4ZZ Drainage of Sigmoid Colon, Percutaneous Endoscopic Approach (ICD-10-PCS; principal; 2018-01-26 10:00)
PROC: 0DBN4ZZ Excision of Sigmoid Colon, Percutaneous Endoscopic Approach (ICD-10-PCS; principal; 2018-01-26 10:00)
PROC: 0UT64ZZ Resection of Left Fallopian Tube, Percutaneous Endoscopic Approach (ICD-10-PCS; principal; 2018-01-26 10:00)
DX: K57.20 Diverticulitis of large intestine with perforation and abscess without bleeding (principal); N70.92 Oophoritis, unspecified; B95.2 Enterococcus as the cause of diseases classified elsewhere
CPT/HCPCS: 87186-90; J0295; J0694; J0696; J1170; J1650; J1885; J2248; J2250; J2405; J2543; J2704; J3010

== ENCOUNTER 2018-02-05 10:52 | Emergency (ER) | payer OTHER ==
[2018-02-05 10:58] VITALS: BP 169/110
--- NOTE | 2018-02-05 11:20 | EDPHY ---
H & P Stated Complaint: DEPRESSION Time Seen by Provider: 02/05/18 10:58 HPI/ROS: CHIEF COMPLAINT: "I need someone to take care of me" HISTORY OF PRESENT ILLNESS: 62-year-old female s/p recent sigmoid colectomy presents with feeling depressed. She is on IV antibiotics for 6 weeks after sigmoid colectomy for perforated diverticulitis. She was discharged home on 02/01 with home health for IV antibiotics. The antibiotics will be completed tomorrow. She continues to have mild abdominal pain and decreased appetite. Tolerating oral fluids well. She has recently moved into a home that she does not like. There are boxes all around the home and the home is very messy. She feels that nobody is helping her, including her son and , who live with her. Denies suicidal and homicidal ideation. REVIEW OF SYSTEMS: complete 10 point ROS negative except at noted in the HPI - Personal History Current Tetanus Diphtheria and Acellular Pertussis (TDAP): Unsure - Medical/Surgical History Hx Asthma: No Hx Chronic Respiratory Disease: No Hx Diabetes: No Hx Cardiac Disease: No Hx Renal Disease: No Hx Cirrhosis: No Hx Alcoholism: No Hx HIV/AIDS: No Hx Splenectomy or Spleen Trauma: No Other PMH: diverticulitis, depression, back surg/knee surg/dupitrens /shoulder, pancreatitis surgery/appy/vein stripping, skin cancer removal - right hand - Social History Smoking Status: Never smoked - Physical Exam Exam: General Appearance: Alert, crying Eyes: Pupils equal and round, conjunctival injection ENT, Mouth: Mucous membranes moist Neck: Normal inspection Respiratory: Lungs are clear to auscultation Cardiovascular: Regular rate and rhythm Gastrointestinal: Abdomen is soft, mild tenderness Neurological: A&O, nonfocal exam Skin: Warm and dry Extremities: Normal inspection Psychiatric: sad, depressed Constitutional: Initial Vital Signs Temperature (C) 36.8 C 02/05/18 10:56 Heart Rate 100 02/05/18 10:56 Respiratory Rate 18 02/05/18 10:56 Blood Pressure 169/110 H 02/05/18 10:56 O2 Sat (%) 96 02/05/18 10:56 O2 Delivery Mode Room Air Allergies/Adverse Reactions: latex [Latex] Allergy (Verified 02/05/18 10:55) HIVES, EYES SWELL Home Medications: Medication Instructions Recorded Diazepam [Valium 5 MG (*)] 5 mg PO DAILY PRN 11/26/16 Ascorbic Acid [Vitamin C 500 mg 500 mg PO BID 12/14/17 (*)] Calcium Carbonate/Vitamin D3 1 each PO BID 12/14/17 [Calcium 500 + Vit D Caplet] Cholecalciferol Vit D3 [Vitamin D3 2,000 units PO DAILY 12/14/17 2000 units tab (OTC)] Multivitamins [Multivitamin (*)] 1 each PO DAILY 12/14/17 [place]-3 Fatty Acids [Fish Oil 1000 1,000 mg PO TID 12/14/17 mg (*)] FLUoxetine [Prozac 20 MG (*)] 20 mg PO DAILY 01/25/18 Propylene Glycol/Peg 400/Pf 1 each OP DAILY PRN 01/25/18 [Systane 0.3-0.4% Eye Drops] Ampicillin/Sulbactam [Unasyn] 3 gm IV Q6 vial 02/01/18 Ibuprofen [Motrin (*)] 600 mg PO Q6H #50 tab 02/01/18 Micafungin Na [Mycamine 100Mg Vial] 100 mg IV DAILY vial 02/01/18 oxyCODONE IR [Oxycodone Ir (*)] 5 - 10 mg PO Q4HRS PRN #30 tab 02/01/18 Medical Decision Making ED Course/Re-evaluation: This patient presents with situational depression. She is not suicidal or homicidal. Mental health spoke with the patient and gave her resources for outpatient treatment. She has Valium at home and took 1 of her Valium prior to discharge home. She went home with her . Departure - Departure Disposition: Home, Routine, Self-Care Clinical Impression: Depression Qualifiers: Depression Type: reactive depression Qualified Code(s): F32.9 - Major depressive disorder, single episode, unspecified Condition: Good Instructions: Depression (ED) Additional Instructions: Return with any concerns. Referrals: Imer Jasso MD [Primary Care Provider] - 2-3 days, call for appt.
== END 2018-02-05 11:46 | disposition home or self-care (01) ==
DX: F32.9 Major depressive disorder, single episode, unspecified (principal); Z85.828 Personal history of other malignant neoplasm of skin; Z91.040 Latex allergy status

== ENCOUNTER 2018-02-12 22:33 | Emergency (ER) | payer OTHER ==
--- NOTE | 2018-02-12 22:59 | EDPHY ---
H & P Stated Complaint: R arm pain, PICC line removed wednesday, concerned for clot Time Seen by Provider: 02/12/18 22:50 HPI/ROS: CHIEF COMPLAINT: Right arm pain HISTORY OF PRESENT ILLNESS: 62-year-old female with medical history significant for recent hospital admission for diverticulitis with diverticular abscess with extension to the left ovary with left tubo-ovarian abscess post sigmoid colectomy and left salpingo-oophorectomy. She completed recent courses of antibiotic and antifungal via PICC line. Her PICC line was removed 5 days ago and she has been feeling well. This evening she noted pain in her right shoulder and right scapular region. Her home health nurse warned her of the possibility of DVT and she therefore comes to the ER for evaluation. She denies: Acute trauma, chest pain, dyspnea, headache, syncope or near syncope, neck pain, facial paresthesia weakness or visual acuity changes. Regarding her abdomen she states that she is feeling well. She has previously been on oxycodone but states that now her pain is controlled with ibuprofen only. No fever no chills no nausea no vomiting. REVIEW OF SYSTEMS: A ten point review of systems was performed and is negative with the exception of the items mentioned in the HPI PAST MEDICAL & SURGICAL HISTORY: Recent hospitalization for diverticulitis with abscess and sigmoid colectomy and salpingo-oophorectomy SOCIAL HISTORY: Nonsmoker PHYSICAL EXAM (Prior to examination, patient consented to physical exam, hands were washed and my usual and customary physical exam procedures followed) 1) GENERAL: Well-developed, well-nourished, alert and oriented. Appears to be in no acute distress. Smiling. 2) HEAD: Normocephalic, atraumatic 3) HEENT: Pupils equal, round, reactive to light bilaterally. Sclera anicteric. 4) NECK: Full range of motion, no meningeal signs. No midline C-spine pain. Full range of motion which does not elicit peripheral paresthesia, weakness, numbness. Tender to palpation right trapezius muscle. No crepitus. 5) LUNGS: Clear auscultation bilaterally, no wheezes, no rhonchi, no retractions. 6) HEART: Regular rate and rhythm, no murmur, no heave, no gallop. 7) ABDOMEN: No guarding, no rebound, no focal tenderness, negative McBurney's, negative Trujillo's, negative Rovsing's, negative peritoneal sign, 8) MUSCULOSKELETAL: Right upper extremity: PICC line puncture site appears well with no signs of infection no tenderness. There is no edema, no palpable cord, no soft compartments are appreciated throughout the right upper extremity. Distal pulses and capillary refill are brisk with normal color normal temperature.. 9) BACK: No CVA tenderness, no midline vertebral tenderness, no fluctuance, no step-off, no obvious trauma, no visual or palpable abnormality. 10) SKIN: No rash, no petechiae. 11) Psychiatric: Patient is oriented X 3, there is no agitation. DIFFERENTIAL DIAGNOSIS: In no particular include but limited to DVT, phlebitis , pneumothorax - Personal History Current Tetanus Diphtheria and Acellular Pertussis (TDAP): Yes - Medical/Surgical History Hx Asthma: No Hx Chronic Respiratory Disease: No Hx Diabetes: No Hx Cardiac Disease: No Hx Renal Disease: No Hx Cirrhosis: No Hx Alcoholism: No Hx HIV/AIDS: No Hx Splenectomy or Spleen Trauma: No Other PMH: diverticulitis, depression, back surg/knee surg/dupitrens /shoulder, pancreatitis surgery/appy/vein stripping, skin cancer removal - right hand - Social History Smoking Status: Never smoked Constitutional: Initial Vital Signs Temperature (C) 36.4 C 02/12/18 22:34 Heart Rate 80 02/12/18 22:34 Respiratory Rate 18 02/12/18 22:34 Blood Pressure 145/95 H 02/12/18 22:34 O2 Sat (%) 100 02/12/18 22:34 O2 Delivery Mode Room Air Allergies/Adverse Reactions: latex [Latex] Allergy (Verified 02/12/18 22:34) HIVES, EYES SWELL Home Medications: Medication Instructions Recorded Diazepam [Valium 5 MG (*)] 5 mg PO DAILY PRN 11/26/16 Ascorbic Acid [Vitamin C 500 mg 500 mg PO BID 12/14/17 (*)] Calcium Carbonate/Vitamin D3 1 each PO BID 12/14/17 [Calcium 500 + Vit D Caplet] Cholecalciferol Vit D3 [Vitamin D3 2,000 units PO DAILY 12/14/17 2000 units tab (OTC)] Multivitamins [Multivitamin (*)] 1 each PO DAILY 12/14/17 [place]-3 Fatty Acids [Fish Oil 1000 1,000 mg PO TID 12/14/17 mg (*)] FLUoxetine [Prozac 20 MG (*)] 20 mg PO DAILY 01/25/18 Propylene Glycol/Peg 400/Pf 1 each OP DAILY PRN 01/25/18 [Systane 0.3-0.4% Eye Drops] Ampicillin/Sulbactam [Unasyn] 3 gm IV Q6 vial 02/01/18 Ibuprofen [Motrin (*)] 600 mg PO Q6H #50 tab 02/01/18 Micafungin Na [Mycamine 100Mg Vial] 100 mg IV DAILY vial 02/01/18 oxyCODONE IR [Oxycodone Ir (*)] 5 - 10 mg PO Q4HRS PRN #30 tab 02/01/18 Medical Decision Making - Diagnostics Imaging Results: Imaging Impressions Extremity Venous Study 02/12/18 22:51 Impression: No evidence of vein thrombosis in the right arm. Chest X-Ray 02/12/18 22:59 Impression: No evidence of acute cardiopulmonary abnormality. Images reviewed myself ED Course/Re-evaluation: 11:02 p.m.: Will obtain ultrasound to evaluate for DVT and chest x-ray to evaluate possible pneumothorax. Old medical records have been reviewed by myself. I saw this patient independently based on established practice protocols. Care of patient under supervision of secondary supervising physician Dr Whitt with whom I discussed case. 11:40 p.m.: Chest x-ray is negative for pneumothorax, ultrasound is negative for DVT interpreted by staff radiologist images reviewed myself. Reviewed the imaging results with the patient. She has been given Flexeril in the ER. She declines prescription for analgesia or Flexeril. I think the patient's symptoms are more likely secondary to acute muscular etiology given the tenderness to palpation. No signs of skin lesions or vesicles to suggest zoster. She feels comfortable being discharged. Usual and customary discharge precautions instructions provided. - Data Points Medications Given: Discontinued Medications Cyclobenzaprine HCl (Flexeril) 10 mg PO EDNOW ONE Stop: 02/12/18 23:11 Last Admin: 02/12/18 23:11 Dose: 10 mg Departure - Departure Disposition: Home, Routine, Self-Care Clinical Impression: Muscle strain Condition: Good Instructions: Muscle Strain (ED) Additional Instructions: Return to the ER immediately if you experience new or worsening neck pain, dizziness, visual disturbance, double vision, lightheadedness, facial droop, or any other symptoms that concern you. Avoid deep tissue massage and chiropractic manipulation, until symptom-free, and cleared by your regular health care provider. Referrals: Imer Jasso MD [Primary Care Provider] - As per Instructions
[2018-02-12] MEDS ORDERED: CYCLOBENZAPRINE 10 MG TAB ONE (23:10)
[2018-02-12] MEDS ORDERED: CYCLOBENZAPRINE 10 MG TAB PO ONE (23:10)
[2018-02-12 23:53] VITALS: BP 150/82
== END 2018-02-12 23:52 | disposition home or self-care (01) ==
DX: M79.601 Pain in right arm (principal); Z85.828 Personal history of other malignant neoplasm of skin; Z91.040 Latex allergy status

== ENCOUNTER 2018-05-06 17:50 | Emergency (ER) | payer BC, OTHER ==
--- NOTE | 2018-05-06 18:37 | EDPHY ---
HPI/HX/ROS/PE/MDM Narrative: CHIEF COMPLAINT: Abdominal pressure HISTORY OF PRESENT ILLNESS: The patient is a 62 y/o female with a history of diverticulitis, C. Diff, a colectomy, an oophorectomy, and an intra abdominal abscess surgery complaining of increasing abdominal pressure, onset 2 days ago. In early February she was diagnosed with C. diff after developing pelvic and rectal pressure associated with diarrhea. Since this diagnosis she has been on 3 rounds of antibiotics and recently finished Dificid. After starting the antibiotics she began to feel better. Yesterday she completed her last round of antibiotics. Around 2 days ago she began to develop abdominal pressure. The pressure has since progressed into abdominal and rectal pain and pressure. She has had firm stool and denies having any diarrhea recently. She denies history of inflammatory bowel disease or Chron's disease, denies history of diabetes. No fever, chills, chest pain, shortness of breath, palpitations, vomiting, diarrhea, urinary complaints, headache, lightheadedness. REVIEW OF SYSTEMS: Aside from elements discussed in the HPI, a comprehensive 10 system review of systems was reviewed and is negative. She does also report significant rectal discomfort and local irritation PAST MEDICAL HISTORY: Diverticulitis, C. Diff, a colectomy, an oophorectomy, and an intra abdominal abscess surgery, numerous orthopedic surgeries, back surgery SOCIAL HISTORY: Denies smoking or taking illicit drugs, occasionally drinks alcohol VITAL SIGNS: Reviewed by me GENERAL: Well-developed, well-nourished, resting comfortably in no respiratory distress. HEENT: Atraumatic. Eyes: No icterus, no injection. Mouth: moist mucous membranes. No erythema or lesions. Neck: supple with no adenopathy. LUNGS: Clear to auscultation bilaterally, no wheezes, rhonchi or rales. CARDIAC: Regular rate and rhythm, no rubs, murmurs or gallops. ABDOMEN: LLQ, RLQ, and suprapubic discomfort, mild abdominal distension. Soft, bowel sounds normal. BACK: Mild left flank discomfort. EXTREMITIES: No trauma. No edema. Range of motion is normal throughout. NEURO: Alert and oriented, grossly nonfocal. SKIN: Warm and dry, no rash. PSYCHIATRIC: Normal mentation, no agitation. Portions of this note were transcribed by a certified medical technician. I personally performed a history, physical exam, medical decision making, and confirmed accuracy of information the transcribed note. ED Course: The patient is a 62 y/o female with a history of diverticulitis, C. Diff, a colectomy, an oophorectomy, and an intra abdominal abscess surgery presenting with increasing abdominal and rectal pressure, onset 2 days ago. Yesterday she stopped finished her third round of antibiotics for C. Diff. On exam she has LLQ , RLQ, and suprapubic discomfort, mild abdominal distension and mild left flank discomfort. Labs and abdominopelvic CT ordered; 1L IV NS and 0.5mg IV Dilaudid administered. 2014: I spoke with the radiologist who reports that the patients abdominopelvic CT largely unremarkable. No diverticulitis, abscess, or bowel obstruction. There is moderate constipation 2047: Reassessed patient and discussed laboratory and imaging findings. She is still having mild abdominal pain; 20mg PO Bentyl administered. I have given her a take home pack of Percocet and prescribed her Bentyl. She has been unable to give us a stool sample, so I have advised her to return a sample to the laboratory. I have also advised her to use a Dulcolax laxative for the constipation seen on the CT scan. Return precautions provided; patient is comfortable with this plan. MDM: The differential diagnosis for the patient's abdominal pain was considered including but not limited to constipation, diverticulitis, diverticular abscess , Clostridium difficile infection, colitis, urinary tract infection. - Data Points Imaging Results: CT Abd Pelvis Impression: 1. Prior sigmoid colonic resection. No acute intra-abdominal process. 2. Mild constipation. 3. Degenerative disk disease at L3-L4 and L5-S1. Results called Dr. Bauer at 8:15 PM. Dictated By: Vinny West MD Imaging: Discussed imaging studies w/ vice president planning Radiologist Laboratory Results: Laboratory Results 05/06/18 19:05 05/06/18 19:05 Medications Given: Discontinued Medications Dicyclomine HCl (Bentyl) 20 mg PO EDNOW ONE Stop: 05/06/18 20:54 Last Admin: 05/06/18 21:18 Dose: 20 mg Hydromorphone HCl (Dilaudid) 0.5 mg IVP EDNOW ONE Stop: 05/06/18 19:02 Last Admin: 05/06/18 19:25 Dose: 0.5 mg Sodium Chloride (Ns) 1,000 mls @ 0 mls/hr IV EDNOW ONE; Wide Open PRN Reason: Protocol Stop: 05/06/18 19:02 Last Admin: 05/06/18 19:24 Dose: 1,000 mls Oxycodone/Acetaminophen (Percocet 5/325mg Prepack#4) 1 btl TAKEHOME EDNOW ONE Stop: 05/06/18 20:55 Last Admin: 05/06/18 21:18 Dose: 1 btl General Time Seen by Provider: 05/06/18 18:31 Initial Vital Signs: Initial Vital Signs Temperature (C) 36.9 C 05/06/18 17:58 Heart Rate 67 05/06/18 17:58 Respiratory Rate 16 05/06/18 17:58 Blood Pressure 135/88 H 05/06/18 17:58 O2 Sat (%) 96 05/06/18 17:58 O2 Delivery Mode Room Air Allergies/Adverse Reactions: latex [Latex] Allergy (Verified 02/12/18 22:34) HIVES, EYES SWELL Home Medications: Medication Instructions Recorded Ascorbic Acid [Vitamin C 500 mg 500 mg PO BID 12/14/17 (*)] Calcium Carbonate/Vitamin D3 1 each PO BID 12/14/17 [Calcium 500 + Vit D Caplet] Cholecalciferol Vit D3 [Vitamin D3 2,000 units PO DAILY 12/14/17 2000 units tab (OTC)] Multivitamins [Multivitamin (*)] 1 each PO DAILY 12/14/17 FLUoxetine [Prozac 20 MG (*)] 20 mg PO DAILY 01/25/18 Propylene Glycol/Peg 400/Pf 1 each OP DAILY PRN 01/25/18 [Systane 0.3-0.4% Eye Drop] Dicyclomine [Bentyl 20 MG (*)] 20 mg PO QID #20 tab 05/06/18 Fidaxomicin 05/06/18 Departure - Departure Disposition: Home, Routine, Self-Care Clinical Impression: Constipation Qualifiers: Constipation type: unspecified constipation type Qualified Code(s): K59.00 - Constipation, unspecified Abdominal pain Qualifiers: Abdominal location: lower abdomen, unspecified Qualified Code(s): R10.30 - Lower abdominal pain, unspecified Condition: Good Instructions: Oxycodone/Aspirin (By mouth), Constipation (ED), High Fiber Diet (ED), Acute Abdominal Pain (ED) Additional Instructions: Please return a stool sample to the laboratory. Take Percocet as prescribed for pain. Take Bentyl as prescribed. Please take a Dulcolax laxative to try and treat the mild constipation visible your CT scan. For your abdominal pain, I suggested you start with a bland diet and advance as tolerated. This means start with clear liquids such as water, Gatorade, juice, flat non- caffeinated soda. If you tolerate clear liquids, then you may add bland foods such as bananas, rice, or toast. If you do not have any worsening of your symptoms, you may begin to resume a regular diet. Return to the emergency department if you have worsening pain, fevers, persistent diarrhea, or other concerns. Referrals: Imer Jasso MD [Primary Care Provider] - As per Instructions Prescriptions: Dicyclomine [Bentyl 20 MG (*)] 20 mg PO QID #20 tab Report Scribed for: Arabella Bauer Report Scribed by: Robyn Briones Date of Report: 05/06/18 Time of Report: 18:37
[2018-05-06] MEDS ORDERED: HYDROmorphONE/DILAUDID 2 MG/ML INJ IVP ONE (19:01)
[2018-05-06] MEDS ORDERED: NS 1,000 ML IV ONE (19:01)
[2018-05-06] MEDS ORDERED: IOPAMIDOL (ISOVUE-300) 100 ML BTL ONE (19:17)
[2018-05-06 19:19] LABS: PLATELET COUNT 321 10^3/uL (150-400)
[2018-05-06] MEDS ORDERED: DICYCLOMINE 10 MG CAP PO ONE (20:53)
[2018-05-06] MEDS ORDERED: OXYCODONE/APAP 5/325MG PREPACK#4 BTL TAKEHOME ONE (20:54)
[2018-05-06 21:23] VITALS: BP 141/83
== END 2018-05-06 21:27 | disposition home or self-care (01) ==
DX: K59.00 Constipation, unspecified (principal)
CPT/HCPCS: 96374; J1170; Q9967

== ENCOUNTER → 2018-12-26 | Outpatient (CLI) | payer BC | LOC: FIMAGING 12:42 | PROVIDERS: ATTEND Surgery | DX: R10.31 Right lower quadrant pain (principal); N85.00 Endometrial hyperplasia, unspecified; Z90.721 Acquired absence of ovaries, unilateral ==

== ENCOUNTER 2019-02-06 16:57 | Emergency (ER) | payer BC | END 2019-02-06 18:01 | disposition home or self-care (01) ==

== ENCOUNTER → 2019-02-10 | Outpatient (CLI) | payer BC | LOC: FIMAGING 15:18 ==